=== PATIENT | female | born 1990 | race Caucasian/White ===

== ENCOUNTER → 2017-11-04 15:13 | Outpatient (CLI) | payer MEDICAID, SELFPAY ==
[2017-11-12 09:04] LABS: HPV Reflexed? NOT INDICATED
== END ==
PROVIDERS: Visit Provider Obstetrics & Gynecology
DX: Z12.4 Encounter for screening for malignant neoplasm of cervix (principal)
CPT/HCPCS: 88175; G0145

== ENCOUNTER → 2017-11-09 15:16 | Outpatient (CLI) | payer MEDICAID, SELFPAY ==
[2017-11-09 16:07] LABS: hCG Titer Quant., Serum < 1 mIU/mL (<9 non-preg)
[2017-11-09 16:22] LABS: Progesterone Level 0.62 ng/mL (See Comment)
== END ==
PROVIDERS: Visit Provider Obstetrics & Gynecology
DX: Z30.9 Encounter for contraceptive management, unspecified (principal)
CPT/HCPCS: 36415; 84144; 84702

== ENCOUNTER → 2019-08-29 09:46 | Outpatient (CLI) | payer MEDICAID, SELFPAY ==
[2016-10-22 14:06] VITALS: BMI 34.5
--- NOTE | 2019-08-29 10:00 | RAD_ITS ---
HISTORY: ARCH PAIN S/P STEPPING ON A YOVANI TOY LAST NIGHT ADDITIONAL HISTORY: None provided. TECHNIQUE: Right foot 3 weight bearing views Number of images including paperwork: 3 COMPARISON: None FINDINGS: BONES: No acute fracture. JOINTS: No subluxation. SOFT TISSUES: No distinct foreign body. RAD/Foot min 3 Views IMPRESSION: No acute osseous abnormality. at [id number] Reported and signed by: Leola Casper MD Electronically Signed: Leola Casper MD at 22:48 EST Tel , Service support ,
[2019-08-29 12:45] LABS: Anion Gap 5 (5-15); BUN 16 mg/dL (7-18); BUN/Creat Ratio 24.1 RATIO (10-20); Calcium,Total 8.9 mg/dL (8.5-10.1); Chloride 104 mmol/L (98-107); Cholesterol 182 mg/dL (200); Creatinine, Serum 0.66 mg/dL (0.55-1.02); EST Glomerular Filtration Rate 111 mL/min (>60); Est Glom Filt Rate - Afr Amer 135 mL/min (>60); Glucose 78 mg/dL (74-106); High Density Lipoprotein 64 mg/dL; Sodium Level 140 mmol/L (136-145); Thyroid Stim Hormone (TSH) 1.57 uIU/mL (0.358-3.74); Triglycerides 57 mg/dL; Very Low Density Lipoprotein 11 mg/dL (5-40)
== END ==
PROVIDERS: Family Provider Family Medicine; PCP Family Medicine; Referring Provider Family Medicine; Visit Provider Family Medicine
DX: Z00.00 Encounter for general adult medical examination without abnormal findings (principal); S99.921A Unspecified injury of right foot, initial encounter
CPT/HCPCS: 36415; 73630; 80048; 80061; 84443

== ENCOUNTER 2020-08-18 09:30 | Outpatient (RCR) | payer MEDICAID, SELFPAY ==
--- NOTE | 2020-07-28 10:35 | HP.PTEVAL_ITS ---
Patient's Visit Information ARIELLE HUDDLESTON is a 30 year old F referred to Physical Therapy by RENATA NaranjoM with a diagnosis of L plantarfascitis, post tib tendonitis. Date of Evaluation: 07/28/20 Physical Therapist: Norberto Smith, PT, ATC - Visit Plan Frequency: 2-3x /Week Duration: 4-6 Weeks Plan: L ankle stretching and strengthening, DTR, US, and HEP - Subjective Pt reports pain in her L foot for several years, but notes it has become worse over the past year. Pt reports pain had an insidious onset in nature. Pt reports no Dx tests at this time. Pt reports numbness in L heel that has been there for several years. Pt reports sleep difficulty at this time secondary to pain. Pt reports her pain is the worst when she wakes up and tries to walk. Pt reports she stretches her L foot and soaks in in warm water to aid with the pain. Pt reports prolonged walking and standing increases her pain. 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 3/10 pain at rest, 10/10 at worst. Pt did have a cortisone injection last week which has helped to decrease the pain. - Pain L ankle pain Pain Intensity (Out of 10): 3 Pain Intensity Range: 10 - Objective Neuro: B LE sensation is WNL to light touch. B patellar reflex= 2/3. Palpation: Pt is very sore on plantar aspect of L heel. Minor pain on medial ankle. No obvious swelling or deformity. Ankle ROM: R ankle DF= 9, PF= 65; L ankle DF= 9, PF= 65. MMT: B ankles 5/5 throughout. Gait: Pt displays early pronation with stance phase. - Goals Goal 1:: Decrease L ankle and foot pain x 50% to aid with sleep Goal Time Frame: 4-6 Weeks Goal 2:: Increase L ankle DF ROM x 5-10 degrees to aid with decreasing pain Goal Time Frame: 4-6 Weeks Goal 3:: I with HEP Goal Time Frame: 4-6 Weeks - Rehabilitation Potential Physical Therapy Diagnosis: Pt has L foot and ankle pain, limited DF ROM, and pain with ambulation secondary to L foot plantarfascitis and post tib tendonitis Rehabilitation Potential: Good - Anticipated Interventions Patient/Client Instruction: Educate patient on: Condition, Plan of Care For the Purpose of:: To improve self management Therapeutic Exercise to Include: Strength training, Flexibilty training For the Purpose of:: To decrease pain, To increase ROM Ultrasound (thermal/non thermal): Yes For the Purpose of:: To decrease pain Thank you for the opportunity to evaluate your patient. For Medicare and Medicare HMO plans, please review the plan of care and approve it. It will need to be FAXED BACK to us at [phone] for Medicare purposes. For Medicare only, by signing this I certify the plan of care. Please let me know if there are questions or concerns regarding this plan of care. Physician Signature: Date:
--- NOTE | 2020-08-26 11:01 | HP.PT.NRP ---
ARIELLE HUDDLESTON was seen in my office for initial evaluation on 07/28/20. The following Plan of Care was established for this patient: Initial Frequency: 2-3x /Week Initial Duration: 4-6 Weeks Patient/Client Instruction: Educate patient on: Condition, Plan of Care For the Purpose of:: To improve self management Therapeutic Exercise to Include: Strength training, Flexibilty training For the Purpose of:: To decrease pain, To increase ROM Ultrasound (thermal/non thermal): Yes For the Purpose of:: To decrease pain This patient was last seen in our office . Pertinent comments regarding their Physical therapy will appear below: Pt was treated for one PT visit for L foot pain. Pt phoned the clinic this date to report that she was cancelling all appointments per doctor. At this point I will be discontinuing this patient from physical therapy. I would be happy to see this patient again in the future if found appropriate by the physician. Thank you! Norberto Smith, PT, ATC
== END 2020-08-18 19:00 | disposition home or self-care (01) ==
LOC: PT 09:30
PROVIDERS: PCP Family Medicine; Referring Provider Podiatrist Foot & Ankle Surgery; Visit Provider Podiatrist Foot & Ankle Surgery
DX: M72.2 Plantar fascial fibromatosis (principal); M76.822 Posterior tibial tendinitis, left leg; G57.52 Tarsal tunnel syndrome, left lower limb
CPT/HCPCS: 97110; 97140; 97161

== ENCOUNTER 2020-08-18 18:06 | Emergency (ER) | payer MEDICAID, SELFPAY ==
--- NOTE | 2020-08-18 09:57 | RAD_ITS ---
STUDY: X-RAY - LEFT FOOT CLINICAL: Female, 30 years old. [place] a pop in foot today, pain TECHNIQUE: 3 view(s) of the foot. COMPARISON: None. FINDINGS: Normal talus, calcaneus, and tarsal bones. Normal visualized subtalar, talonavicular, calcaneocuboid, tarsal and tarsometatarsal articulations. Normal metatarsi. Normal metatarsophalangeal joint of the great toe. Normal tibial and fibular sesamoid bones. Normal interphalangeal joint of the great toe. Normal phalanges of the great toe. Normal second through fifth metatarsophalangeal joints. Normal interphalangeal joints and phalanges of the lesser toes. The soft tissue structures are unremarkable. RAD/Foot min 3 Views IMPRESSION: Normal x-ray examination of the foot. Electronically Signed: Sunny Quinones DO at 21:00 EST Tel [phone], Service support ,
[2020-08-18 18:07] VITALS: BP 158/87; PULSE 94; RESP 14; TEMP 36.8; O2SAT 98; BMI 39.4
--- NOTE | 2020-08-18 20:12 | ED.VIS.GEN ---
History of Present Illness Chief Complaint: Lower Extremity Injury Informant: Patient Onset: Today Narrative: Patient states that she was playing kickball with the children when she felt a pop on the underside of her foot. She notes some radiation posterior to the medial malleolus. She has a history of plantar fasciitis and sees Dr. Dukes. Past Medical History - Allergies and Home Meds Allergies/Adverse Reactions: Allergies No Known Allergies Allergy (Verified 08/18/20 18:07) Primary Care Physician: Steph Dukes DPM [STAFF PHYSICIAN] - As soon as possible Past Medical History: - - Planter fasciitis Surgical History: noncontributory Smoking Status: Never smoker Review of Systems General: Denies: Chills, Fever, Sweats Eyes: Denies: Visual changes - bilaterally, Diplopia ENT: Denies: Rhinorrhea, Sore throat Cardiovascular: Denies: Chest pain, Palpitations Respiratory: Denies: Dyspnea, Cough, Dyspnea on exertion Gastrointestinal: Denies: Abdominal pain, Nausea, Vomiting, Diarrhea, Melena, Hematochezia Genitourinary: Denies: Dysuria, Hematuria, Frequency Musculoskeletal: Reports: Extremity Pain. Denies: Back pain Skin: Denies: Rash, Wounds Neurological: Denies: Headache, Weakness, Numbness Physical Exam Vital Signs/Narrative: Vital Signs Temp Pulse Resp BP Pulse Ox 08/18/20 18:07 98.3 F 94 14 158/87 H 98 Inital Vital Signs reviewed: Yes General: Well nourished, Well developed, No Acute Distress Head: Normocephalic, Atraumatic Eyes: Perrl, EOMI ENT: Moist mucous membranes, No rhinorrhea Neck: Supple, Nontender Cardiovascular: Regular rate, Regular rhythm, No murmurs Respiratory: No distress, CTA bilaterally, Chest nontender Abdomen: Soft, Nontender, Nondistended, Normal bowel sounds Back: Nontender, Normal Inspection Extremities: No edema, Tenderness - Tenderness along the arch of the left foot. No significant swelling. No obvious deformities. Neurovascularly intact Skin: Normal color, No rash Neurological: Alert, Oriented x3, Cranial nerves II-XII grossly intact, Normal Strength, Normal Sensation Psychological: Normal affect, Normal Mood Diagnostic/Tx/Re-eval - Medical Decision Making I do not see any fractures or avulsions on the x-ray. It is most likely a plantar strain possibly a small tear in connective tissue. Would recommend rest following up with podiatry. Patient states that she can barely bear weight. We are going to place her in a walking boot. Was discussed with Dr. Dukes. ED Disposition - Plan for ED Patient: Disposition: Home or Assisted Living Diagnosis: Strain of left foot Instructions: ED Strain Muscle Ext Referrals: Steph Dukes DPM [STAFF PHYSICIAN] - As soon as possible
== END 2020-08-18 21:04 | disposition home or self-care (01) ==
PROVIDERS: Emergency Provider Emergency Medicine; PCP Family Medicine
DX: S96.912A Strain of unspecified muscle and tendon at ankle and foot level, left foot, initial encounter (principal); X58.XXXA Exposure to other specified factors, initial encounter; Y93.6A Activity, physical games generally associated with school recess, summer camp and children; Y92.9 Unspecified place or not applicable; Y99.8 Other external cause status; M72.2 Plantar fascial fibromatosis
CPT/HCPCS: 73630; 99284

== ENCOUNTER 2021-05-06 12:49 | Emergency (ER) | payer MEDICAID, SELFPAY ==
[2021-05-06 12:50] VITALS: BP 120/79; PULSE 82; RESP 16; TEMP 36.3; O2SAT 97; BMI 38.3
--- NOTE | 2021-05-06 13:32 | EDS_ITS ---
HPI History of Present Illness Chief Complaint: Ear Problem Detail of Chief Complaint: Neck and upper back pain. Informant: patient Onset/Context/Timing Onset: Yesterday Context: Gradual Onset Timing: Continuous Current Severity: Mild Maximum Severity: Mild Narrative Narrative: 30-year-old female states yesterday she started having left arm pain that moved to her neck and upper back. She denies any falls injury or trauma. No fever or chills. No sore throat. No other complaints.Pain is worse with movement. Prior similar symptoms: Yes Recent Illness/Hospitalization: No PFSH PFSH no medical history Home Medications NK 08/18/20 [History Last Taken Unknown] Allergy/AdvReac Type Severity Reaction Status Date / Time No Known Allergies Allergy Verified 05/06/21 12:49 no surgical history Social History Smoking Status: Never smoker ROS ROS ED ROS Narrative Patient denies any recent illness. Review of Systems ROS Unobtainable: Denies due to encephalopathy Constitutional Constitutional ED: Denies chills or fever(s) Eyes Eyes: Denies change in vision ENT ENT ED: Reports ear pain; Denies sore throat Cardiovascular Cardiovascular: Denies chest pain or palpitations Respiratory/Chest Respiratory/Chest: Denies cough or dyspnea Gastrointestinal Gastrointestinal: Denies abdominal pain, diarrhea, nausea or vomiting Genitourinary Genitourinary ED: Denies dysuria or hematuria Musculoskeletal Musculoskeletal: Reports back pain and neck pain; Denies myalgias Integumentary Denies abscess or rash Neurologic Neurologic: Denies headache(s) Psychiatric Psychiatric: Denies depression Endocrine Endocrinology: Denies polyuria Allergic/Immunologic Allergic/Immunologic ED: Denies urticaria EXAM Physical Exam Narrative Exam Narrative: 3-year-old female no acute distress. Vital signs stable afebrile. Lungs are clear. Heart regular rate and rhythm. TMs are normal bilaterally. As is the posterior pharynx. Patient has reproducible soft tissue pain left lateral neck and trapezius -Consistent with myofascial strain and spasm. Otherwise exam unremarkable. Const Vital Signs: 05/06/21 12:50 Temperature 97.3 F L Temperature Source Temporal Pulse Rate 82 Respiratory Rate 16 Blood Pressure 120/79 Blood Pressure Mean 92 Pulse Ox 97 Oxygen Delivery Method Room Air Positive well nourished and well developed; Negative for unkempt General Appearance ED: well developed and NAD; Negative for unkempt HEENT Reports TM's clear and moist mucous membranes Negative for trauma or tenderness Tympanic Membrane ED: Yes TM's clear Eyes PERRL and EOMs intact bilaterally Neck no lymphadenopathy, supple and no JVD Neck Narrative: Left lateral neck soft tissue tenderness in the distribution of the trapezius. General: tenderness Chest Wall inspection of chest normal and palpation of chest normal Resp normal respiratory effort and clear to auscultation bilaterally Effort and Inspection: Negative for pain with movement Auscultation: Negative for rales, rhonchi or diminished lung sounds Cardio regular rate, regular rhythm, S1 normal heart sound, S2 normal heart sound and no murmurs GI normal to inspection, nondistended, normoactive bowel sounds, non-tender, non- distended and no masses Auscultation: normoactive bowel sounds Palpation: soft; Negative for tender Back/Spine no CVA tenderness Extremity normal to inspection General Extremety ED: Negative for edema or tenderness General Extremity: Negative for edema Neuro oriented x3 and CN's II-XII intact bilaterally Sensorium / Orientation: alert; Negative for lethargic or stuporous Motor Exam: strength 5/5 throughout Psych mental status grossly normal Appearance: Negative for unkempt Skin no rashes or lesions noted and no wounds MDM MDM MDM Narrative Medical decision making narrative: 30-year-old with neck strain and spasm. Patient be treated with Motrin for pain and inflammation. We discussed and are deferring on a muscle relaxant.Hot shower. Warm soaks. Massage. Motrin. Discharge Plan Triage Chief Complaint: Ear Problem ED Provider: Bandar Barajas Dx/Rx/DC Orders Clinical Impression: Muscle spasm Instructions: ED Neck Spasm, No Trauma Prescriptions: No Action NK RF: 0 Primary Care Provider: Edwin Macdonald Referrals: Edwin Macdonald MD [Primary Care Provider] - 1 Week if not improving Activity Restrictions/Additional Instructions: Hot shower. Warm bath. This should help relax the muscles in your neck and upper back. Massage. Motrin, Advil or ibuprofen for pain and inflammation. I did suggest 6 to 800 mg 3 times a day with food on your stomach. No more than 1 week. Follow-up with your doctor if not improving. Disposition Disposition: Home, Self Care
== END 2021-05-06 13:42 | disposition home or self-care (01) ==
PROVIDERS: Emergency Provider Emergency Medicine; PCP Family Medicine
DX: M62.838 Other muscle spasm (principal)
CPT/HCPCS: 99282

== ENCOUNTER 2022-03-03 21:00 | Emergency (ER) | payer MEDICAID, SELFPAY ==
[2022-03-03 21:01] VITALS: BP 145/108; PULSE 92; RESP 18; TEMP 36.1; O2SAT 95; BMI 38.2
--- NOTE | 2022-03-03 21:15 | EKG12_ITS ---
Test Reason : [facility] [place] Blood Pressure : / mmHG Vent. Rate : 067 BPM Atrial Rate : 067 BPM P-R Int : 186 ms QRS Dur : 094 ms QT Int : 396 ms P-R-T Axes : 042 025 013 degrees QTc Int : 418 ms Normal sinus rhythm with sinus arrhythmia Normal ECG Confirmed by CORAL ROB, RAFAELA ([id number]), non linear editor BEN MOJICA ([id number]) on 03/04/2022 11:24:01 AM Referred By: PL Confirmed By:RAFAELA MONCADA MD
--- NOTE | 2022-03-03 21:25 | EX.ED.DYSGE1 ---
HPI <Dr. Josué Vale MD - Last Filed: 03/03/22 22:05> History of Present Illness Chief Complaint: Suicidal Informant: patient Narrative Narrative: Patient presents with depression, anxiety and suicidal thoughts. Patient does have a history of depression about 6 years ago. She was treated with Ativan and Prozac and did pretty well. She has been off meds for a long time. She has been having more more panic attacks and depression recently. In the last 6 weeks is gotten bad. She thinks this is just overall life and stress. 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 She saw her primary physician. They prescribed Prozac which she started two days ago. Since starting the meds, she has had thoughts of hurting herself. She has no specific plan. She just feels as though the only way to feel better would be to not be alive at all. She is crying all the time. She is not sleeping. Her appetite is down. She feels need she needs help. She was also prescribed hydroxyzine and Effexor. However her doctor talked to her about looking at the side effects. Patient did look at these and chose not to start those meds. Patient never has attempted suicide in the past. She denies any physical complaints. PFSH <Dr. Josué Vale MD - Last Filed: 03/03/22 22:05> [facility] Medical History Anxiety Depression depression Home Medications fluoxetine [Prozac] 20 mg PO DAILY 03/03/22 [History Last Taken Unknown] Allergy/AdvReac Type Severity Reaction Status Date / Time No Known Allergies Allergy Verified 03/03/22 21:03 Social History Smoking Status: Never smoker ROS <Dr. Josué Vale MD - Last Filed: 03/03/22 22:05> ROS ED Constitutional Constitutional ED: Denies chills or fever(s) Eyes Eyes: Denies blurry vision ENT ENT ED: Denies rhinorrhea or sore throat Cardiovascular Cardiovascular: Denies chest pain Respiratory/Chest Respiratory/Chest: Denies cough or dyspnea Gastrointestinal Gastrointestinal: Denies abdominal pain, nausea or vomiting Genitourinary Genitourinary ED: Denies dysuria Musculoskeletal Musculoskeletal: Denies myalgias Integumentary Denies rash Neurologic Neurologic: Denies headache(s), paresthesias or weakness Psychiatric Psychiatric: Reports anxiety, depression and suicidal thoughts Endocrine Endocrinology: Denies polydipsia or polyuria Allergic/Immunologic Allergic/Immunologic ED: Denies urticaria EXAM <Dr. Josué Vale MD - Last Filed: 03/03/22 22:05> Physical Exam Const Vital Signs: 03/03/22 21:01 03/04/22 00:10 Temperature 97 F L Temperature Source Temporal Pulse Rate 92 Respiratory Rate 18 16 Blood Pressure 145/108 H Blood Pressure Mean 120 Pulse Ox 95 Oxygen Delivery Method Room Air Patient is actively crying during visit. Positive well nourished and well developed General Appearance ED: well developed and NAD HEENT Reports moist mucous membranes Negative for trauma Eyes General Eye ED: Negative for pale conjunctiva or scleral icterus Neck no JVD Resp normal respiratory effort and clear to auscultation bilaterally Cardio regular rate, regular rhythm and no murmurs GI normal to inspection, nondistended, normoactive bowel sounds and non-tender Palpation: soft Back/Spine no CVA tenderness Extremity normal to inspection Neuro oriented x3 Sensorium / Orientation: alert Psych Psych Narrative: Patient has flat affect. She is tearful. She is cooperative but she makes very poor eye contact. She admits to thoughts of dying and states that she cannot get them out of her head. But she does not have a specific plan. Skin no rashes or lesions noted <Dr. Jocy Reyes DO - Last Filed: 03/04/22 01:04> Physical Exam Const Vital Signs: 03/03/22 21:01 03/04/22 00:10 Temperature 97 F L Temperature Source Temporal Pulse Rate 92 Respiratory Rate 18 16 Blood Pressure 145/108 H Blood Pressure Mean 120 Pulse Ox 95 Oxygen Delivery Method Room Air MDM <Dr. Josué Vale MD - Last Filed: 03/03/22 22:05> MDM MDM Narrative Medical decision making narrative: Patient will have medical work-up here. We will then have crisis team evaluate her for admission versus close intensive outpatient type follow-up. Patient is pending completed work-up and will be turned over the oncoming physician pending final dispo. I was able to get her CBC back that shows minimally elevated hemoglobin but otherwise normal. Electrolytes were normal other than minimally decreased potassium. This will be replaced but I do not think in any way this is contributing to her problems. Lab Data Attestation: I reviewed the patient's lab results. Labs: Laboratory Results - last 24 hr 03/03/22 03/03/22 03/03/22 21:35 21:35 21:35 WBC 8.8 RBC 5.33 Hgb 15.1 H Hct 45.4 MCV 85.2 MCH 28.3 MCHC 33.3 RDW Std Deviation 38.5 RDW Coeff of Conchita 12.5 Plt Count 211 MPV 10.4 Immature Gran % (Auto) 0.300 Neut % (Auto) 65.9 Lymph % (Auto) 26.1 [place] % (Auto) 5.9 Eos % (Auto) 1.3 Baso % (Auto) 0.5 Absolute Neuts (auto) 5.8 Absolute Lymphs (auto) 2.30 Nucleated RBC % 0 Sodium 139 Potassium 3.2 L Chloride 105 Carbon Dioxide 27.0 Anion Gap 7 BUN 12 Creatinine 0.75 Estim Creat Clear Calc 97.80 Est GFR (MDRD) Af Amer 115 Est GFR (MDRD) Non-Af 95 BUN/Creatinine Ratio 16.0 Glucose 90 Calcium 9.2 Serum , Qual Urine Opiates Screen Urine Methadone Screen Ur Barbiturates Screen Ur Phencyclidine Scrn Ur Amphetamines Screen MDMA (Ecstasy) Screen U Benzodiazepines Scrn Urine Cocaine Screen U Cannabinoids Screen Ur Drug Screen Comment Ethyl Alcohol < 3.0 03/03/22 03/03/22 21:35 21:35 WBC RBC Hgb Hct MCV MCH MCHC RDW Std Deviation RDW Coeff of Conchita Plt Count MPV Immature Gran % (Auto) Neut % (Auto) Lymph % (Auto) [place] % (Auto) Eos % (Auto) Baso % (Auto) Absolute Neuts (auto) Absolute Lymphs (auto) Nucleated RBC % Sodium Potassium Chloride Carbon Dioxide Anion Gap BUN Creatinine Estim Creat Clear Calc Est GFR (MDRD) Af Amer Est GFR (MDRD) Non-Af BUN/Creatinine Ratio Glucose Calcium Serum , Qual NEGATIVE Urine Opiates Screen NEGATIVE Urine Methadone Screen NEGATIVE Ur Barbiturates Screen NEGATIVE Ur Phencyclidine Scrn NEGATIVE Ur Amphetamines Screen NEGATIVE MDMA (Ecstasy) Screen NEGATIVE U Benzodiazepines Scrn NEGATIVE Urine Cocaine Screen NEGATIVE U Cannabinoids Screen NEGATIVE Ur Drug Screen Comment Ethyl Alcohol EKG Initial EKG: Comments: EKG done as part of medical clearance read by me showed normal sinus rhythm with slight sinus arrhythmia. No ventricular ectopy. No acute ST elevation or depression. WI interval, QRS duration and QTC is normal <Dr. Jocy Reyes, DO - Last Filed: 03/04/22 01:04> [facility] MDM Narrative Medical decision making narrative: Care of patient turned over to me awaiting evaluation by crisis. Crisis did evaluate the patient and they felt that they could safety plan on the patient as she does not have a plan or intent at this time. Patient will contract for safety. Crisis will have close follow-up with patient. Patient will be discharged to home Lab Data Labs: Laboratory Results - last 24 hr 03/03/22 03/03/22 03/03/22 21:35 21:35 21:35 WBC 8.8 RBC 5.33 Hgb 15.1 H Hct 45.4 MCV 85.2 MCH 28.3 MCHC 33.3 RDW Std Deviation 38.5 RDW Coeff of Conchita 12.5 Plt Count 211 MPV 10.4 Immature Gran % (Auto) 0.300 Neut % (Auto) 65.9 Lymph % (Auto) 26.1 [place] % (Auto) 5.9 Eos % (Auto) 1.3 Baso % (Auto) 0.5 Absolute Neuts (auto) 5.8 Absolute Lymphs (auto) 2.30 Nucleated RBC % 0 Sodium 139 Potassium 3.2 L Chloride 105 Carbon Dioxide 27.0 Anion Gap 7 BUN 12 Creatinine 0.75 Estim Creat Clear Calc 97.80 Est GFR (MDRD) Af Amer 115 Est GFR (MDRD) Non-Af 95 BUN/Creatinine Ratio 16.0 Glucose 90 Calcium 9.2 Serum , Qual Urine Opiates Screen Urine Methadone Screen Ur Barbiturates Screen Ur Phencyclidine Scrn Ur Amphetamines Screen MDMA (Ecstasy) Screen U Benzodiazepines Scrn Urine Cocaine Screen U Cannabinoids Screen Ur Drug Screen Comment Ethyl Alcohol < 3.0 03/03/22 03/03/22 21:35 21:35 WBC RBC Hgb Hct MCV MCH MCHC RDW Std Deviation RDW Coeff of Conchita Plt Count MPV Immature Gran % (Auto) Neut % (Auto) Lymph % (Auto) [place] % (Auto) Eos % (Auto) Baso % (Auto) Absolute Neuts (auto) Absolute Lymphs (auto) Nucleated RBC % Sodium Potassium Chloride Carbon Dioxide Anion Gap BUN Creatinine Estim Creat Clear Calc Est GFR (MDRD) Af Amer Est GFR (MDRD) Non-Af BUN/Creatinine Ratio Glucose Calcium Serum , Qual NEGATIVE Urine Opiates Screen NEGATIVE Urine Methadone Screen NEGATIVE Ur Barbiturates Screen NEGATIVE Ur Phencyclidine Scrn NEGATIVE Ur Amphetamines Screen NEGATIVE MDMA (Ecstasy) Screen NEGATIVE U Benzodiazepines Scrn NEGATIVE Urine Cocaine Screen NEGATIVE U Cannabinoids Screen NEGATIVE Ur Drug Screen Comment Ethyl Alcohol Discharge Plan Triage Chief Complaint: Suicidal ED Provider: Josué Vale Dx/Rx/DC Orders Clinical Impression: Major depression, Suicidal ideation, Anxiety, Hypokalemia Instructions: ED Anxiety Reaction, CONTRACT, No Harm, ED Depression Prescriptions: No Action fluoxetine [Prozac] 10 mg Capsule 20 mg PO DAILY RF: 0 Primary Care Provider: Edwin Macdonald Referrals: Edwin Macdonald MD [Primary Care Provider] - 3-5 Days Activity Restrictions/Additional Instructions: Follow-up with counseling center as instructed Disposition Disposition: Home, Self Care
[2022-03-03 21:46] LABS: Absolute Neutrophil Count 5.8 X10^3/uL (2.0-7.7); Basophil# 0.04 X10^3/uL; Basophil% 0.5 % (0-1); Eosinophil# 0.11 X10^3/uL; Eosinophils% 1.3 % (0-5); Hematocrit 45.4 % (37-47); Hemoglobin 15.1 g/dL (12.0-15.0); Lymphocyte % 26.1 % (19-41); Mean Corp Hgb Conc 33.3 g/dL (32-36); Mean Corpuscular Hgb 28.3 pg (27.0-32.0); Mean Corpuscular Volume 85.2 fL (81-99); Mean Platelet Vol. 10.4 fl (6.2-12.0); Monocyte# 0.52 X10^3/uL; Monocyte% 5.9 % (0-10); NRBC Flagged by Analyzer 0 % (0-5); Neutrophil % 65.9 % (47-70); Platelet Count 211 K/mm3 (150-450); RBC Distribution Width CV 12.5 % (11.6-14.6); RBC Distribution Width SD 38.5 fl (35.1-43.9); Red Blood Count 5.33 M/mm3 (4.2-5.4); White Blood Count 8.8 K/mm3 (4.4-11.0)
[2022-03-03 21:58] LABS: Anion Gap 7 (5-15); BUN 12 mg/dL (7-18); Calcium,Total 9.2 mg/dL (8.5-10.1); Chloride 105 mmol/L (98-107); Creatinine, Serum 0.75 mg/dL (0.55-1.02); EST Glomerular Filtration Rate 95 mL/min (>60); Est Glom Filt Rate - Afr Amer 115 mL/min (>60); Glucose 90 mg/dL (74-106); Potassium 3.2 mmol/L (3.5-5.1); Sodium Level 139 mmol/L (136-145)
[2022-03-03] MEDS: Potassium Chloride Oral Tablet 20 MEQ 40 MEQ PO (22:12)
[2022-03-03 22:24] LABS: Amphetamine Urine VISTA NEGATIVE (<1000 ng/mL); Barbiturate Urine VISTA NEGATIVE (< 200 ng/mL); Benzodiazepine Urine VISTA NEGATIVE (< 200 ng/mL); Cocaine Urine VISTA NEGATIVE (< 300 ng/mL); Ecstacy Urine VISTA NEGATIVE (< 500 ng/mL); Methadone Urine VISTA NEGATIVE (< 300 ng/mL); PCP Urine VISTA NEGATIVE (< 25 ng/mL); THC Urine VISTA NEGATIVE (< 50 ng/mL); Vista UDS pH Range 6
[2022-03-03 22:27] LABS: Internal QC Validated? YES +Cl - CLEAR BKGD; Pregnancy, Serum, hCG Quali. NEGATIVE Negative
[2022-03-03 22:29] LABS: Alcohol, Blood (Medical)-Serum < 3.0 mg/dL
--- NOTE | 2022-03-03 23:11 | NURSING ---
CALLED CRISIS AT [id number]
[2022-03-03] MEDS: Acetaminophen 325 MG Tablet 650 MG PO (23:41)
[2022-03-04 00:10] VITALS: RESP 16
[2022-03-04 01:38] VITALS: PULSE 69; RESP 14; O2SAT 98
== END 2022-03-04 01:38 | disposition home or self-care (01) ==
PROVIDERS: Emergency Provider Emergency Medicine; PCP Family Medicine; Visit Provider Emergency Medicine
DX: F32.9 Major depressive disorder, single episode, unspecified (principal); F41.9 Anxiety disorder, unspecified; R45.851 Suicidal ideations; E87.6 Hypokalemia
CPT/HCPCS: 80048; 80307; 82077; 84703; 85025; 87811; 93005; 99284

== ENCOUNTER 2022-03-15 08:00 | Outpatient (RCR) | payer MEDICAID, SELFPAY ==
--- NOTE | 2022-03-15 10:10 | BH.SGPN.GN ---
Behaviors/Verbalizations/Mental Status: []Eye contact is good. Motor activity is appropriate. Appearance is casual and grooming tended to. Speech is Appropriate. Mood is anxious. Affect is constricted. Thoughts are linear and logical. No evidence of psychosis Client Response/Progress/Benefit: []Pt receptive of session, quiet, but taking notes and nodding at times. Appeared to connect with group topic of cognitive distortions and the impact of thought patterns on mental health, coping behaviors, and relationships. Pt nodded at peer examples of distortions such as catastrophizing and mental filter. Pt?s first day of IOP tx and reports feeling highly anxious, but did well to stay engaged. Pt appeared to benefit from gaining insight on distorted thinking patterns and how this impacts overall mental health. Will continue IOP tx to prevent decompensation, improve daily functioning, and gain health coping skills. Narrative Note: []
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
--- NOTE | 2022-03-17 10:13 | BH.SGPN.GN ---
Behaviors/Verbalizations/Mental Status: []Eye contact is good. Motor activity is appropriate. Appearance is casual. Speech is Appropriate. Mood is depressed and anxious. Affect is congruent. Thoughts are linear and logical. No evidence of psychosis. Client Response/Progress/Benefit: []Pt connected with topic of Anxiety and attentive throughout, though providing limited input. Attentive during psychoeducation on different anxiety disorders and taking notes throughout interactive discussion defining anxiety and identifying cognitive and physiological symptoms of anxiety. Shared that anxiety can lead to isolating and avoidance. Common cognitive symptoms identified by group included: ?what if thoughts?, ?fear of failure?, and predicting the future type thoughts. Pt did not share during discussion on physiological symptoms of anxiety. Benefited from increased awareness and insight on anxiety and its impact. Plan is to continue in IOP to improve mood stability, increase knowledge and use of healthy coping and thought challenge skills, and prevent decompensation. Narrative Note: []
[2022-03-17 11:07] VITALS: BP 128/84; PULSE 67
--- NOTE | 2022-03-17 11:46 | BH.PSY.EVA_ITS ---
Psychiatric Evaluation Initial Evaluation Initial Evaluation: History of Present Illness: [] The patient is a 31-year-old female with a history of depression, anxiety and traits of OCD who was referred by her primary care doctor to the [facility] behavioral health IOP program. The patient currently lives with her boyfriend of 14 years and their 5 biological children from age 6 to age 14 and her boyfriend's niece who is a special needs patient with developmental delays and possible autism. The patient has 3 sons and 2 daughters and the nieces a daughter is a female. The patient was seen in the [place] emergency room on March 03, 2022 for depression, panic attacks and fleeting suicidal ideation. 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 Due to financial stress and the stress of raising 6 children, however the patient's symptoms persisted and worsened. Her boyfriend who is the father of all her 5 children is 37 years old and works full-time at a plant as a maternity floor supervisor. He is supportive. There is no abuse in their relationship. The patient states she has had some anger issues in recent years. She has often intrusive thoughts about medications causing side effects and in fact when she started Prozac several weeks ago she looked up the side effects and began feeling suicidal due to reading about it online. This resolved and the patient had taken Prozac in the past and done well on it. The patient also is afraid to be alone because when she is along she states that her intrusive thoughts increase and are easier to ignore and she gets stuck in my head. Other intrusive thoughts including thoughts that she will possibly hurt others and intrusive images of homicides and other things she has seen in the past on crime TV shows. These thoughts are very unpleasant and ego dystonic for her and she immediately feels bad about herself. She talks to her self and tells her self that these are just thoughts. She does not have any rituals she does to deal with them. She has no history of violence. The thoughts do not regard any specific person or intent. Patient stopped her caffeine use 1 month ago because it was making her anxiety worse. The patient does have some issues with numbers where she has to flip light switches a certain number of times and she has some symmetry issues but it is her intrusive thoughts that last all day long prior to starting the Prozac and have decreased somewhat since starting the Prozac 2 weeks ago. She admits to feeling somewhat sad and edgy at times. She has some crying and low motivation. She admits to hopelessness but denies worthlessness. She does have guilt. She is not enjoying much that she does. Her appetite was decreased and she lost 20 pounds in the past several months but this has improved now and she is not losing weight now. Her sleep is always decreased to about 5 hours a night max and she states I have never slept well. She has low energy during the day and her concentration is better now than it was 2 weeks ago. She ruminates negatively often and this anxiety worsens at night. She has panic attacks daily they were happening twice a day but since the Prozac several weeks ago they have decreased to 1 every 2 days now. She denies any history of self-harm, eating disorder, trauma or PTSD. She denies seizure or head trauma. She admits I am afraid to but at times I do not want to be alive. She had passive thoughts of 2 to 3 weeks ago but has had none in the past week. She had fleeting, passive suicidal ideation 2 to 3 weeks ago but denies any in the past week. She has nonspecific thoughts to harm someone but not out right homicidal ideation and there are no specific intents or people in her intrusive thoughts that are ego dystonic. She denies hallucinations, delusions or symptoms of brook ever. Current Psychiatric Medications: [] Prozac 20 mg p.o. daily (x2 weeks); Vistaril 25 m p.o. nightly; Ativan 0.5 mg once a day last week but the last time she needed any Ativan was 4 days ago. Past Psychiatric History: [] No psychiatric admissions ever. No suicide att empts ever. She first took medication for psychiatric reasons at age 20 and has been mostly off of medication since then. She had counseling once at age 25 for few months and it was mildly helpful. She has been anxious since childhood and had intrusive thoughts but did not know what they were. She was first depressed at age 20 and then after this resolved she had a second episode of depression at age 25. She had 3 pregnancies with no depression or other mood issues. She denies any brook ever . Substance Use History: [] Non-smoker. She used to smoke half a pack per day off-and-on but quit 10 years ago. No vaping. Last used marijuana 6 years ago. No other drugs. No rehab ever. Allergies: [] No known allergies Medications: [] Prozac and Vistaril only. Past Medical History: [] She is overweight and has a history of asthma that was worse in childhood than it is now. She has regular menstrual periods and is not using control but states that her partner is trying not to get her . She is a 5 para 5 AB 0 female who has a history of 5 vaginal deliveries that were uncomplicated. Her only surgeries were a tonsillectomy and a kidney stone removal. Family Psychiatric History: [] Her mother is 63 years old and her father at age 57 of a drug overdose. Her father had a history of depression, anxiety, drug and alcohol abuse. He of a drug overdose at age 57 but this was not known to be suicide. There was a completed suicide by a paternal great grandfather of the patient. Her mother and sister and brother and nephew all have depression and anxiety. Personal/Social History: [] The patient was born and raised in [place] and describes her childhood as there was a lot of [id number] living in a suitcase. The patient's parents were but when the patient was 5 years old and had shared custody. Her father was very loving and spent a lot of time with the children when they were with him and she is much closer to her father. Her mother worked a lot and left the patient and her sister alone and the patient does not get along well with her mother. She has 1 full sister who is 2 years older than her and they are close. She has 2 half-brothers who are 9 years older than her and she is close to one of them. She denies any verbal, physical or sexual abuse ever. School was hard for her but she liked it and her grades were okay but it was not easy for her. She became in 12th grade and and so quit high school. She got her GED at age 19. Her current b oyfriend is her boyfriend of 14 years and he is the father of all her children. No abuse in the relationship. Legal History: [] She was arrested at age 18 for underage alcohol use. 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 No other arrests. Review of Systems: [] Negative except as noted in the present illness. Laboratory was done in the emergency room on March 03 and was normal. Vital Signs: [] Vital signs and exam are reviewed in the records and updated in the nurses notes are reviewed and the patient is deemed able to participate in the IOP program. Mental Status Examination: [] The patient is a 31-year-old female who appears normal for stated age and is overweight. She is not wearing a mask and she is casually dressed and groomed with good hygiene and wearing glasses. She has no psychomotor agitation or retardation. She is cooperative during the interview. Eye contact is good and speech is normal rate and rhythm and fluent with no pressure. Mood is depressed. Affect is constricted and tearful at times. Thought process is goal-directed and organized. Thought content: There is evidence of recent passive thoughts of several weeks ago and passive suicidal ideation several weeks ago but none currently. There is no evidence of homicidal ideation that is specific other than intrusive thoughts that she might harm someone. There is no evidence of hallucinations, delusions or symptoms of brook. Reality testing is intact. Intelligence is average. Judgment is intact. Insight: Some present. Diagnoses: [] 1. Major depressive disorder, recurrent, severe without psychosis 2. Obsessive-compulsive disorder (with obsessions only) 3. Primary support and financial issues Plan: [] The patient will start the IOP program in behavioral health at [facility] as the structure, support, education and group therapy will hopefully prevent worsening of the patient's symptoms which might require hospitalization. She felt safe during the interview and if it anytime she does not feel safe she will let us know or go to the emergency room. The risk, options, possible complications and side effects of the medications were discussed with the patient and she understands and accepts these. She agrees to increase the Prozac to 40 mg p.o. daily and discussion was had that the patient has already responded somewhat to the Prozac and she understands that obsessive-compulsive disorder sometimes takes higher doses of medicines and takes up to 12 weeks to show response. In addition the Vistaril was refilled at 25 mg, 1:59 in the evening as needed for severe anxiety or sleep. I will see the patient in follow-up in 2 weeks and she will continue to follow-up with her outpatient psychiatric and medical providers.
--- NOTE | 2022-03-17 12:01 | BH.DR.ITP ---
Initial Treatment Plan Patient Information Visit Information: ADMISSION DATE: EXPECTED LOS: 4-6 weeks Problems/Symptoms Problem #1:: Depression Symptom:: Hopelessness, guilt, sadness, anger, anhedonia, biological disruption of appetite and weight, low energy, passive thoughts of , passive suicidal ideation Problem #2:: Anxiety Symptom:: Worry, panic attacks, rumination, intrusive thoughts/obsessions
--- NOTE | 2022-03-19 10:15 | BH.SGPN.GN ---
Behaviors/Verbalizations/Mental Status: []Pt alert and oriented, casually dressed and groomed. Eye contact good. Motor activity appropriate. Speech within normal limits. Affect constricted, mood anxious. Thoughts linear, logical, no signs of hallucinations or delusions Client Response/Progress/Benefit: []Pt responded well to session AEB sharing and listening attentively to others. pt was engaged throughout group discussion defining fixed mindset and what it can look like. Group discussed how fixed mindset affects mental health and why we use fixed thoughts. Pt participated in experiential activity encouraging pts to find solutions to a seemingly impossible task. Pt identified personal fixed thoughts in session which included ?I can?t do this, it?s too hard and I?m too old, why try.? Pt gained insight to how these fixed thoughts lead to guilt and unrealistic expectations for herself. Pt appeared to benefit from increased knowledge of fixed mindset and self-awareness of personal fixed thoughts. Will continue IOP tx to prevent decompensation, gain healthy coping skills , and reduce intensity and frequency of intrusive thoughts. Narrative Note: []
--- NOTE | 2022-03-19 14:35 | BH.MDN ---
Multi-Disciplinary Note - Note 30-min Individual Time Started:: 11:30 Date: 03/19/22 Purpose of session/treatment goals addressed:: To gather information on pt's current stressors, symptoms, triggers, and tx goals. Another goal was to build rapport, provide psychoeducation on intrusive thoughts, and provide emotional support. Eye Contact:: Good Motor Activity:: Appropriate Appearance:: Casual Speech:: Appropriate Mood:: Anxious, Irritable, Dysthymic Affect:: Constricted Thoughts:: Racing, No evidence of hallucinations/delusions noted Staff Interventions:: psychoeducation on: - intrusive thoughts, rapport building, strengths perspective, treatment planning, goal setting, other - Discussed exposure therapy and increasing ability to sit with the uncomfortable. Client Response:: Pt responded well to session, open to meeting with therapist. Pt stated her symptoms have been worsening for the past 6 months. Pt shared it got to a point where pt wished she was not alive anymore and this terrified pt. Pt went to the ER in February 2022. Pt reported she was put on Prozac and this helped some, specifically with reducing compulsions. Pt reports her mind never shuts off and that pt is always in my head. Pt describes self as a what if thinker and pt connected to discussion of intrusive thinking. Pt shared she is not ready to read about intrusive thinking yet and reported feeling worried about talking about it. Receptive to emotional support and discussion of the techniques to reduce intrusive thoughts. Pt reported benefitting from this discussion. Pt identified her goals for IOP tx to include learning to be a mom without having guilt, giving more responsibility to her children, loving herself again, finding a job, getting out of her head, and learning how to sit with uncomfortable thoughts and feelings. Pt shared she lacks self-care, especially because she has 6 children. Pt describes her /fiance as helpful and he is taking time off work to watch the children while pt gets help. Risks/Concerns:: Pt denies any active suicidal ideations, plan, or intent as of 03/19/22. Pt denies any HI. Admits to having passive SI several weeks ago due to feeling overwhelmed by life. Progress Toward Goals/Plan:: Pt's first week of IOP tx and pt reports it went better than she thought. Pt's medications were recently increased and pt hopes this helps. Pt currently endorses severe anxiety and intrusive thinking. Pt endorses a depressed mood, lack of energy, panic attacks, racing thoughts, poor sleep, and frequent intrusive thoughts that are highly distressing to pt. Pt also reports rituals and compulsions, but pt reports these have improved since taking Prozac. Pt will continue IOP tx to prevent decompensation, improve overall functioning, and increase ability to manage intrusive thoughts. Time Stopped:: 12:00
--- NOTE | 2022-03-19 14:50 | BH.MTP_ITS ---
[facility] Treatment Plan - Patient Information Program Physician:: Dr. Mack Primary Therapist:: Rama GREEN - Psychiatric Diagnoses Psychiatric Diagnoses:: Major depressive disorder, recurrent, severe without psychosis F 33.2; Obsessive-compulsive disorder Diagnosis Code(s):: F 33.2 - Estimated LOS Estimated LOS (in weeks):: 6 Problem/Goal #1 - Problem/Goal #1 Stated Goal:: Pt will reduce overall frequency, intensity, and duration of anxiety and intrusive thoughts so that daily functioning is not impaired. Description of Barriers: Pt does not have outpatient counseling or psychiatry services. Pt admits to struggling with mom-guilt which leads to lack of self- care and boundaries. Pt reports not knowing who she is outside of being a mother. Functional Impact: Pt is a 31-year-old female with a history of depression, anxiety, and OCD. Pt was referred to IOP tx by her PCP due to worsening depression, fleeting SI, and panic attacks. Pt had an ER visit on 03/03/22 due to mental health concerns and was assessed by crisis. At admission, pt endorsed daily panic attacks, intrusive thoughts, poor sleep, poor appetite, low energy, low motivation, crying spells, anhedonia, and hopelessness. Pt reports intrusive thoughts daily and other OCD tendencies such as touching the door knob until it feels right. Pt has multiple stressors including raising 6 kids and financial stressors. Pt admits to thoughts of not wanting to be alive at times, but denies any active suicidal ideations, plan, or intent. Fear of acting on her intrusive thoughts and being alone. Pt's symptoms are impacting her social, familial, and every day functioning. Goal Relevant Strengths/Supports: Pt's is taking time off work to help with childcare while pt is in [facility]. Pt is motivated and willing to learn. - Objectives Objective #1 Stated Objective: Pt will identify 2-3 anxiety triggers and 2 coping skills to use when feeling anxious to manage anxiety as shown by reducing DSM-5 scores for anxiety. Interventions: Through group and individual sessions, pt will gain awareness of anxiety triggers and learn numerous techniques to manage anxiety symptoms. Therapist will teach mindfulness and other calming techniques to manage symptoms and increase distress tolerance skills. Discharge Criteria: Pt will have met this goal when pt can identify at least 2 triggers and 2 ways to cope with anxiety and show a reduction of DSM-5 scores for anxiety. Target Date: 04/26/22 Review Date: 04/05/22 Status: open Objective #2 Stated Objective: Pt will identify 2-3 intrusive/ruminating thoughts and learn 2-3 strategies to overcome, replace, or reduce the value of those thoughts. Interventions: Therapist will help pt increase awareness of cognitive distortions, false comfort, and myths about intrusive thoughts. Therapist will encourage pt to focus on stressors in her control and teach pt distress tolerance techniques. Therapist will utilize distractions, mindfulness, and CBT- based strategies to help pt learn how to more effectively manage and cope with her intrusive, health-related thoughts. Therapist will use a workbook to give pt homework and exercises to practice. Discharge Criteria: pt will have met this goal when can report least 2 ways to cope with intrusive thoughts that exacerbate anxiety. Target Date: 04/26/22 Review Date: 04/05/22 Status: open Problem/Goal #2 - Problem/Goal #2 Stated Goal:: Pt will reduce depressive symptoms, guilt, low motivation, and negative thinking patterns due to major depressive disorder. Description of Barriers: Pt does not have outpatient counseling or psychiatry services. Pt admits to struggling with mom-guilt which leads to lack of self- care and boundaries. Pt reports not knowing who she is outside of being a mother. Functional Impact: Pt is a 31-year-old female with a history of depression, anxiety, and OCD. Pt was referred to [facility] tx by her PCP due to worsening depression, fleeting SI, and panic attacks. Pt had an ER visit on 03/03/22 due to mental health concerns and was assessed by crisis. At admission, pt endorsed daily panic attacks, intrusive thoughts, poor sleep, poor appetite, low energy, low motivation, crying spells, anhedonia, and hopelessness. Pt reports intrusive thoughts daily and other OCD tendencies such as touching the door knob until it feels right. Pt has multiple stressors including raising 6 kids and financial stressors. Pt admits to thoughts of not wanting to be alive at times, but denies any active suicidal ideations, plan, or intent. Fear of acting on her intrusive thoughts and being alone. Pt's symptoms are impacting her social, familial, and every day functioning. Goal Relevant Strengths/Supports: Pt's is taking time off work to help with childcare while pt is in IOP. Pt is motivated and willing to learn. - Objectives Objective #1 Stated Objective: Pt will learn and utilize 2-3 healthy coping strategies to better manage depressive symptoms as shown by a reduced DSM-5 scores for depression and irritability. Interventions: Through group and individual sessions, therapist will help pt identify triggers and warning signs of depression and emotional dysregulation including emotional, physical, and behavioral changes. Therapist will teach pt various coping skills to manage her symptoms and give pt tangible resources to use to regulate emotions. Therapist will use cognitive restructuring techniques and help pt gain awareness of negative thoughts that reinforce guilt and depression. Therapist will provide psychoeducation on maintenance cycles and help pt learn ways to break unhealthy maintenance cycles. Therapist will help pt incorporate behavioral activation and assist pt in setting SMART goals. Discharge Criteria: Pt will have met this goal when can report learning and using at least 2 coping skills to manage depressive symptoms. Additionally, pt will have met this goal when depressive symptoms and irritability have reduced on the DSM-5 scale. Target Date: 04/26/22 Review Date: 04/05/22 Status: open Objective #2 Stated Objective: Pt will identify at least 2-3 negative self-talk messages used to reinforce depression and guilt and replace thoughts with positive, realistic messages Interventions: therapist will help pt identify distorted, negative beliefs about self and replace with more realistic, affirmative messages. Therapist will use CBT to help pt increase insight to the connection between thoughts, emotions, and behaviors. Therapist will encourage pt to practice thought challenging. Discharge Criteria: Pt will have achieved this goal when can verbalize at least 2 negative self-talk messages and effectively replace those thoughts with affirmative, realistic messages. Target Date: 04/26/22 Review Date: 04/05/22 Status: open
--- NOTE | 2022-03-19 14:51 | BH.PSA_ITS ---
Source of Information - Presenting Problems/Circumstances Problems, Referral Source, Mental Status, Client: Pt is a 31-year-old female with a history of depression, anxiety, and OCD. Pt was referred to [facility] tx by her PCP due to worsening depression, fleeting SI, and panic attacks. Pt had an ER visit on 03/03/22 due to mental health concerns and was assessed by crisis. At admission, pt endorsed daily panic attacks, intrusive thoughts, poor sleep, poor appetite, low energy, low motivation, crying spells, anhedonia, and hopelessness. Pt reports intrusive thoughts daily and other OCD tendencies such as touching the door knob until it feels right. Pt has multiple stressors including raising 6 kids and financial stressors. Pt admits to thoughts of not wanting to be alive at times, but denies any active suicidal ideations, plan, or intent. Fear of acting on her intrusive thoughts and being alone. Pt's symptoms are impacting her social, familial, and every day functioning. Psychiatric Presentation - Psych Issues & Need for Admission Psychiatric Issues:: Major depressive disorder, recurrent, severe without psychosis F 33.2; Obsessive-compulsive disorder Past Psychiatric History - Treatment Hx Treatment History: No psychiatric admissions ever. No suicide attempts ever. She first took medication for psychiatric reasons at age 20 and has been mostly off of medication since then. She had counseling once at age 25 for few months and it was mildly helpful. She has been anxious since childhood and had intrusive thoughts but did not know what they were. She was first depressed at age 20 and then after this resolved she had a second episode of depression at age 25. She had 3 pregnancies with no depression or other mood issues. She denies any brook ever . No current therapist or psychiatrist. First hospitalization:: n/a Most recent hospitalization:: n/a Medication Trials:: No ECT Therapy:: No Age of first mental health symptoms: See treatment history Describe (age, circumstance, etc) any past hospitalizations: pt denies any hospitalizations Current providers for mental health treatment (counselor, psychiatrist, rn field case manager, etc.): No current mental health providers. Pt was put on medication by her PCP. Pt will need outpatient therapy and psychiatry prior to discharging from [facility]. Development & Family of Origin - Childhood Significant Childhood Events: Pt was born and raised in [place] and describes her childhood as there was a lot of [id number] living in a suitcase. The patient's parents were but when the patient was 5 years old and had shared custody. - Family Who currently lives in your home?: Pt and her long-time boyfriend live together with their five children and niece. Describe family composition:: Pt's parents when pt was [age] and they had shared parenting over pt and her sister. Pt described her father as very loving and spent a lot of time with the children when they were with him and she is much closer to her father. Pt's father of a drug overdose when he was 57. Her mother worked a lot and left pt and her sister alone and pt does not get along well with her mother. She has one full sister who is two years older than her and they are close. She has two half-brothers who are 9 years older than her and she is close to one of them. Pt is not , but has been with the same partner for 14 years. Together they have five children and they have guardianship over their niece. Pt reports the relationship is loving and denies any abuse. Pt first became at age 17. - Family History Family Hx of Psychiatric or AOD Problems: pt's at age 57 of a drug overdose. Her father had a history of depression, anxiety, drug and alcohol abuse. He of a drug overdose at age 57 but this was not known to be suicide. There was a completed suicide by a paternal great grandfather of the patient. Her mother and sister and brother and nephew all have depression and anxiety. Ethnicity - Culture Do you identify yourself with any particular cultural, ethnic background, or community?: No - Sexuality Sexual Orientation: Heterosexual Mental Status - Memory Recent Memory: Good Remote Memory: Good - Concentration Concentration: Good - Eye Contact Eye Contact: Good - Speech Speech: Articulate - Thought Process Thought Process: Obsessions Insight: Good Judgment: Good Behavior: Anxious - Orientation Orientation: Time, Person, Place, Situation - Appearance Appearance: Appropriate - Mood Mood: Anxious, Depressed - Affect Affect: Constricted Suicide Assessment - Suicidal Ideation Have you ever felt like hurting yourself?: Yes Were you using ETOH/drugs at the time?: No Suicidal Intentional Rating Scale (SIRS): Suicidal thoughts (past) - admits I am afraid to but at times I do not want to be alive. She had passive thoughts of 2 to 3 weeks ago but has had none in the past week. She had fleeting, passive suicidal ideation 2 to 3 weeks ago but denies any in the past week. She has nonspecific thoughts to harm someone but Physician Notification: If Active suicidal thoughts/Will not contract for safety is checked, contact physician and document in the Physician Notification section below. Violent Behavior/Abuse History - Homicidal Ideation Do you have any homicidal thoughts? If so, explain:: No Is there a known potential victim? If yes, who:: No - Life Events Are there any other significant life events?: Financial loss - pt reports financial stress due to pt not working., - pt's father of an overdose several years ago and pt was very close with him., Hardships - Pt and her partner have guardianship over their niece and pt reports the niece has a lot of mental health and behavioral issues. Pt wants to help her, but pt struggles at times with feeling overwhelmed. - Safety Do you ever feel threatened in your home? If yes, describe:: No Adult Social History - Age 18 to Present Describe your current support system:: Pt has her partner of 14 years, her sister, family, and several friends. Substance Use - Substance Substance Use Type: Alcohol, Marijuana, Tobacco, Caffeine - Specific Drugs What specific drugs have you used?: Non-smoker. She used to smoke half a pack per day off-and-on but quit 10 years ago. No vaping. Last used marijuana 6 years ago. No other drugs. No rehab ever. social drinker. Arrested for underage drinking at age 18. Education & Occupational Histo - Education What is your level of education?: GED - pt got her GED at age 19. Pt dropped out of high school in 12th grade when she became . 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 pt wants to find a part-time job after completing [facility] Service - Service Have you ever been in the ?: No Legal History - Records Have you had any past legal charges?: Yes - underage drinking age 18 Do you have any current legal charges?: No Have you ever been incarcerated? If yes, describe:: No - Court Orders Have you had any past court orders for psychiatric treatment?: No Do you have a present court order for psychiatric treatment?: No Problem Checklist - Current Problem Areas Problem List: Nutritional/Eating pattern changes, Depressed mood/sad, Anxiety, Anger/aggression - irritability, Inattention, Substance use - history of nicotine dependence., Sleep problems, Additional psychosocial stressors - pt is a mother to six children which leaves little time for self-care [employer] Assessment - Client's Needs What are the client's strengths?: Pt's is taking time off work to help with childcare while pt is in [facility]. Pt is motivated and willing to learn. Diagnoses - Diagnoses Diagnosis #1:: OCD Diagnosis #2:: MDD recurrent, severe, without psychosis Interpretive Summary - Interpretive Summary Interpretive Summary: Pt is a 31-year-old female with a history of depression, anxiety, and OCD who was referred by her primary care doctor to the [facility]. Pt currently lives with her boyfriend of 14 years and their 5 biological children from age 6 to age 14 and her boyfriend's niece who is a special needs patient with developmental delays and possible autism. Pt has three sons and two daughters and their niece. Pt was seen at the [facility] ER on March 03, 2022 for depression, panic attacks and fleeting suicidal ideation. Pt states that she has been working as a [id number] mom for about 1 year for the 6 children in the house. 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 Due to financial stress and the stress of raising 6 children, however pt's symptoms persisted and worsened. Her boyfriend who is the father of all her 5 children is 37 years old and works full-time at a plant as a calendering supervisor. He is supportive. There is no abuse in their relationship. pt states she has had some anger issues in recent years and irritability due to her anxiety and OCD. She has often intrusive thoughts about medications causing side effects and when she started Prozac several weeks ago she looked up the side effects and began feeling suicidal due to reading about it online. This resolved and pt had taken Prozac in the past and done well on it. Pt also is afraid to be alone because when she is along she states that her intrusive thoughts increase and are easier to ignore and she gets stuck in my head. Other intrusive thoughts including thoughts that she will possibly hurt others and intrusive images of homicides and other things she has seen in the past on crime TV shows. These thoughts are very unpleasant and ego dystonic for her and she immediately feels bad about herself. She talks to her self and tells her self that these are just thoughts. She has no history of violence. The thoughts do not regard any specific person or intent. Pt reports rituals in which pt will have to touch an object until it feels right and has thoughts that if she does not do this something will happen to my family. Pt stopped her caffeine use one month ago because it was making her anxiety worse. Pt reports depressive symptoms including hopelessness but denies worthlessness. She does have guilt and she is not enjoying much that she does. Her appetite was decreased and she lost 20 pounds in the past several months but this has im proved now and she is not losing weight now. Her sleep is always decreased to about 5 hours a night max and she states I have never slept well. She has low energy during the day and her concentration is better now than it was 2 weeks ago. She ruminates negatively often and this anxiety worsens at night. She has panic attacks daily they were happening twice a day but since the Prozac several weeks ago they have decreased to 1 every 2 days now. She denies any history of self-harm, eating disorder, trauma or PTSD. She denies seizure or head trauma. She admits I am afraid to but at times I do not want to be alive. She had passive thoughts of 2 to 3 weeks ago but has had none in the past week. She had fleeting, passive suicidal ideation 2 to 3 weeks ago but denies any in the past week. She has nonspecific thoughts to harm someone but not out right homicidal ideation and there are no specific intents or people in her intrusive thoughts that are ego dystonic. She denies hallucinations, delusions or symptoms of brook ever. Strong family history of anxiety, depression, and substance use. Pt reports belief her father likely had undiagnosed OCD as well as pt shared he was very much like me. Pt denies any current substance use. Denies history of trauma. Pt reports strong support from her sister and her partner. Treatment Plan Recommendations - Recommendations Guidelines: Special needs identified to be included in the development of an individualized treatment plan regarding past psychiatric history and treatment, developmental events, family relationships/events/culture, past and/or current educational, occupational, social, and residential experience, and legal status. Recommendations:: Pt will start the IOP program in behavioral health at [facility] as the structure, support, education and group therapy will hopefully prevent worsening of the patient's symptoms which might require hospitalization. She felt safe during the interview and if it anytime she does not feel safe she will let us know or go to the emergency room. The risk, options, possible complications and side effects of the medications were discussed between pt and IOP psychiatrist and she understands and accepts these. Pt and therapist discussed using the Overcoming Unwanted Intrusive Thoughts book to help with pt's obsessive thinking and pt is receptive. Pt will need outpatient therapy and psychiatry prior to leaving [facility].
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
--- NOTE | 2022-03-22 09:00 | BH.SGPN.GN ---
Behaviors/Verbalizations/Mental Status: []Pt alert and oriented, neatly dressed and groomed. Eye contact good. Motor activity appropriate. Speech within normal limits. Affect congruent, mood content. Thoughts linear, logical, no signs of hallucinations or delusions. Reviewed pt?s symptom tracker, no risk for suicidal ideation, plan, or intent as of 03/22/22 Client Response/Progress/Benefit: [] Pt responded well to session, attentive and providing supportive statements. Pt reports feeling great this morning. Pt shared she got some adult time this weekend and challenged the guilt she felt for taking time away from her kids. Pt stated this is big progress for her as pt struggles to practice self-care, but pt had a good time. Pt's stressor today is that her is talking about going back to work earlier than expected. Group offered ideas for communicating anxiety with which pt appeared to benefit from. Pt will continue IOP tx to promote mood stability, reduce intrusive thinking, and improve self-confidence. Narrative Note: []
--- NOTE | 2022-03-22 10:00 | BH.SGPN.GN ---
Behaviors/Verbalizations/Mental Status: [] Eye contact is good. Motor activity is appropriate. Appearance is casual. Speech is Appropriate. Mood is anxious. Affect is congruent. Thoughts are linear and logical. No evidence of psychosis. Client Response/Progress/Benefit: [] Pt was an active participant during interactive group discussions. Attentive during psychoeducation on the six types of boundaries (physical, emotional, intellectual, sexual, time, and material) AEB note-taking. Along with peers contributed to interactive discussion on defining what a boundary is in mental health. Pt along with peers identified challenges to setting boundaries which included; fear of other's response, guilt, fear of rejection, fear of disappointing the other person, feeling like one is unworthy to set boundaries, etc. Pt along with peers identified the benefits to setting boundaries such as increased control, decreased stress, increased time for self-care, and increased confidence. Group discussed the mental health benefits to establishing boundaries at work, school, and home. Pt benefited from increased awareness and insight on the importance/benefit to setting health boundaries. Will continue in IOP to prevent decompensation, stabilize anxiety, and improve functioning. Narrative Note: []
--- NOTE | 2022-03-22 11:05 | BH.SGPN.GN ---
Behaviors/Verbalizations/Mental Status: []Client alert and oriented, casually dressed and appropriately groomed. Eye contact good. Motor activity WNL.? Speech within normal limits. Affect congruent, mood anxious and euthymic. Thoughts linear and intact. no signs of delusions or hallucinations. Client Response/Progress/Benefit: []Client responded well to session AEB listening attentively to peers, providing some input, as well as taking notes throughout. Client contributed more throughout psychoeducation on different boundary setting styles which is progress as she has struggled to share in prior groups. Reports connecting most with porous style of boundary setting, identifying difficulties saying ?no? to others or allowing herself to make her own self-care needs a priority. Participated in small group discussion brainstorming various strategies for improving healthy boundary setting. Client reports wanting to begin using skill of practicing saying ?no? to small things and challenging associated guilt in doing so to improve overall ability to establish and maintain healthy boundaries. Seemed to benefit from increased awareness of how different boundary styles can impact mental health. Will continue IOP tx to increase consistent application of skills, increase self-care and anxiety management, and prevent decompensation. Narrative Note: []
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
--- NOTE | 2022-03-24 10:10 | BH.SGPN.GN ---
Behaviors/Verbalizations/Mental Status: []Pt alert and oriented, neatly dressed and groomed. Eye contact good. Motor activity appropriate. Speech within normal limits. Affect constricted, mood euthymic and anxious. Thoughts linear, logical, no signs of hallucinations or delusions. Client Response/Progress/Benefit: []Pt engaged during session AEB Pt contributing thoughts throughout discussion and completing worksheet. Connected with discussion on crisis and how coping with external crises by using unhealthy coping skills could result in a personal crisis. Group reflected on the importance of having awareness of personal warning signs to prevent reaching crisis point. Group identified potential warning signs for crisis and Pt completed the personal warning signs worksheet. Pt identified personal crisis warning signs to include: over-thinking, uncontrollable crying, and increased irritability. Pt benefited by increasing awareness of what leads to crisis and personal warning signs. Pt will continue IOP tx to improve distress tolerance skills, improve daily functioning, and reduce intensity of intrusive thinking. Narrative Note: []
--- NOTE | 2022-03-24 15:11 | BH.MDN ---
Multi-Disciplinary Note - Note 45-min Individual Time Started:: 11:30 Date: 03/24/22 Purpose of session/treatment goals addressed:: To work on goal #1 of pt's tx plan by learning about intrusive thinking and practicing calming skills. Eye Contact:: Good Motor Activity:: Appropriate Appearance:: Casual Speech:: Soft Mood:: Anxious, Dysthymic Thoughts:: Linear, Logical, No evidence of hallucinations/delusions noted Staff Interventions:: psychoeducation on: - intrusive thoughts and how these thoughts are created, CBT techniques, mindfulness skills - practiced PMR, strengths perspective, other - gave pt homework to read a chapter on the myths about thoughts Client Response:: Pt responded well to session, open to meeting with therapist. Pt reports she had a good weekend and got to spend time with her friends without children. This is significant for pt as pt struggles with guilt and lack of self-care. Pt also reflected on her goals from last session which was to identify what pt's children can take more responsibility for at home. This will reduce pt's stress and help pt's children be more independent per pt's report. Pt's goal this week is to create a family chart that has chores, bedtime, and shower schedule to help everyone get organized. Pt receptive to learning more about intrusive thinking and pt read part of a chapter in the Overcoming Unwanted Intrusive Thoughts book. Pt shared this sums up everything I'm going through. Pt was very anxious to read this, but pt shared it was easier than she expected. Pt receptive to reading a chapter at home which is progress from last week. Pt practiced progressive muscle relaxation in session and was encouraged to use this when pt's anxiety increases. Pt reports also using the 5-senses and going out in nature. Risks/Concerns:: Pt denies any suicidal ideations, plan, or intent as of 03/24/22. Pt denies any thoughts of . Progress Toward Goals/Plan:: Pt is progressing well in IOP tx AEB her consistent attendance and self-report of practicing coping skills outside of IOP. Pt stated she made progress with having a kid-free event this weekend with less guilt. Pt continues to struggle with severe anxiety, intrusive thoughts that cause distress, avoidance, and racing thoughts. Pt will continue IOP tx to reduce intensity of intrusive thinking, gain healthy coping skills, and improve daily functioning. Time Stopped:: 12:15
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
--- NOTE | 2022-03-26 10:10 | BH.SGPN.GN ---
Behaviors/Verbalizations/Mental Status: [] Eye contact is good. Motor activity is appropriate. Appearance is casual. Speech is Appropriate. Mood is depressed. Affect is flat. Thoughts are linear and logical. No evidence of psychosis Client Response/Progress/Benefit: [] Pt participated at times during the group discussions and experiential activity. Attentive during psychoeducation. Group had an interactive discussion in which they provided insight on the definition of a pitfall which was things that we engage in that keep us stuck and away from a healthier path. Group identified types of pitfalls in mental health such as isolation, not asking for help, avoiding, not taking medications, avoiding responsibilities, not setting boundaries, and self-sabotage. Pt played an active role in the experiential activity and was able to make connections between the activity and today's topic. Benefited from increased insight on pitfalls and how they can impact mental health. Will continue in IOP to prevent decompensation, increase health coping, and improve daily functioning. Narrative Note: []
--- NOTE | 2022-03-26 11:10 | BH.SGPN.GN ---
Behaviors/Verbalizations/Mental Status: []Pt alert and oriented, casually dressed and groomed. Eye contact good. Motor activity appropriate. Speech within normal limits. Affect congruent, mood anxious. Thoughts linear, logical, no signs of hallucinations or delusions. Client Response/Progress/Benefit: []Pt receptive of session, engaged throughout AEB pt actively listening and contributing to discussion, as well as taking notes.? Pt completed worksheet identifying personal pitfalls impacting mental health progress. Pt identified the following pitfalls: negative thoughts, anxiety, frustration, fear of failure, and giving up easily. Group worked together to identify different coping skills to help manage pitfalls. Pt selected the following coping skills to help with pitfalls: opposite action, thought challenging, limiting her to-do list to two manageable tasks per day, and meditation. Pt wants to work on managing pitfalls by setting small grounding and meditation goals focused on managing anxiety. Benefited from identifying personal pitfalls and strategies to overcome these pitfalls. Will continue IOP tx to reduce anxiety, reduce avoidance, and increase ability to manage OCD symptoms. Narrative Note: []
--- NOTE | 2022-03-29 09:03 | BH.SGPN.GN ---
Behaviors/Verbalizations/Mental Status: []Pt alert and oriented, casually dressed and groomed. Eye contact poor. Tearful throughout. Motor activity appropriate. Speech within normal limits. Affect flat, mood depressed. Thoughts linear, logical, no signs of hallucinations or delusions. Reviewed pt?s symptom tracker, no risk for suicidal ideation, plan, or intent as of 03/25/22 Client Response/Progress/Benefit: []Pt appeared to be distracted and stuck in her own thoughts AEB pt crying off and on throughout first group. Pt chose to not share her thoughts or feelings during group session. Pt's individual therapist notified after group about pt struggling throughout first session. Pt seemed to benefit from getting out of house today and being surrounded by support people. Pt to continue IOP to increase healthy coping skills, challenge negative thought patterns and prevent decompensation.
--- NOTE | 2022-03-29 11:05 | BH.SGPN.GN ---
Behaviors/Verbalizations/Mental Status: []Pt alert and oriented, casually dressed and groomed. Eye contact good. Motor activity appropriate. Speech within normal limits. Affect constricted, mood dysthymic. Thoughts linear, logical, no signs of hallucinations or delusions. Client Response/Progress/Benefit: []Pt responded well to session AEB listening to group discussion and completing the resilience worksheet provided. Pt participated in the discussion of how each resiliency component can help increase personal resiliency. Pt identifying doing well with the resilience components of making connections, self-care, self-awareness, and moving toward her goals. Reflected on wanting to improve in the personal resilience component of accepting that change is a part of living. Pt stated she wants to work on this by practicing mindfulness and living in the moment. Pt seemed to benefit from discussing strategies for improving personal resilience. Will continue IOP tx to improve sleep, reduce intensity of intrusive thinking, and improve overall functioning. Narrative Note: []
--- NOTE | 2022-03-29 13:39 | BH.MDN_ITS ---
Multi-Disciplinary Note - Note 30-min Individual Time Started:: 12:00 Date: 03/29/22 Purpose of session/treatment goals addressed:: Pt was tearful throughout group sessions today. Goal was to process pt's emotions and provide emotional support. Eye Contact:: Good Motor Activity:: Appropriate Appearance:: Casual Speech:: Soft Mood:: Depressed Affect:: Congruent - tearful Thoughts:: Linear, Logical, No evidence of hallucinations/delusions noted Staff Interventions:: mindfulness skills, strengths perspective, other - provided emotional support and validation Client Response:: Pt responded well to session, open to meeting with therapist. Pt was tearful throughout session and shared that she did not get much sleep last night. Pt went to see her father's grave yesterday for Father's Day and it triggered a lot of grief. Pt stated she is sad and angry because he made a mistake and should still be here. Pt reports her father accidentally overdosed on her sister's birthday several years ago. Pt was very close with her father and identified him as her best friend. Pt receptive to processing emotions, grief, and emotional support. Pt identified taking a nap, talking to her sister, and enjoying her daughter's softball game tonight as healthy coping skills she can use. Pt reported she is afraid to take her new sleep medication due to fear of side effects. Processed this and pt weighed the pros and cons. Pt agreeable t o take the medication tonight. Risks/Concerns:: Pt denies any suicidal ideations, plan, or intent as of 03/29/22. Progress Toward Goals/Plan:: Pt continues to make progress towards tx goals AEB pt's consistent attendance and application of coping skills. Pt reports increased self-care and adult time. Pt's depressed mood and tearfulness is due to pt missing her father who several years ago. Father's Day was a trigger for pt. Pt continues to struggle with poor sleep and has been too anxious to start her new sleep medication. Pt also endorses intrusive thinking, avoidance behaviors, and anxiety. Pt will continue IOP tx to promote the use of healthy coping skills, reduce intensity of intrusive thinking, and improve daily functioning. Time Stopped:: 12:25
--- NOTE | 2022-03-31 09:10 | BH.SGPN.GN ---
Behaviors/Verbalizations/Mental Status: []Pt alert and oriented, casually dressed and groomed. Eye contact fair to good. Motor activity appropriate. Speech within normal limits. Affect congruent, mood euthymic and anxious. Thoughts linear, logical, no signs of hallucinations or delusions. Reviewed pt?s symptom tracker, no risk for suicidal ideation, plan, or intent as of 03/31/22 Client Response/Progress/Benefit: []Pt responded well to session, attentive and willing to provide some input to peers which is progress for pt. Pt reports feeling hopeful this morning as she is seeing progress in treatment and her ability to better manage anxiety sx. Discussed challenging herself to ?do the anxious thing? when feeling increased anxiety about reviewing the homework from her individual session. Expressed feeling proud of herself for doing so as able to connect with the materials she was given to review. Pt went on to note spending time outside of the house with her children and which was also a positive as she often struggles with isolation. Reports continuing to struggle with anxious and intrusive thoughts regarding beginning a new sleep medication; however was receptive of and appeared to benefit from supportive feedback and suggestions provided by the group. Pt will continue IOP tx to promote mood stability, further reduce anxious thinking patterns and use of safety behaviors, as well as improve daily functioning. Narrative Note: []
--- NOTE | 2022-03-31 10:10 | BH.SGPN.GN ---
Behaviors/Verbalizations/Mental Status: [] Eye contact is good. Motor activity is appropriate. Appearance is casual. Speech is Appropriate. Mood is anxious. Affect is congruent. Thoughts are linear and logical. No evidence of psychosis. Client Response/Progress/Benefit: [] Attentive during psychoeducation on SMART (Specific, Measurable, Achievable, Realistic, Timely)goals AEB by note-taking. Attentive during group discussion on benefits to setting goals which group identified as; give direction, provide purpose, give one sense of accomplishment, motivate, and can lead to personal growth. Attentive while peers identified obstacles to setting/completing goals which included; procrastination, mental health, believing they are too difficult, urge to avoid, get distracted, other people get in the way, low motivation, negative self-talk, unrealistic expectations, and procrastination. Engaged during activity and was able to relate the activity to goal-setting topic. Benefited from increased awareness on benefits to goal-setting, obstacles to developing and following through with a goal, and strategies for setting goals. Will continue in IOP to increase health coping skills, decrease anxiety, and improve daily functioniong. Narrative Note: []
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
--- NOTE | 2022-03-31 14:33 | BH.MDN ---
Multi-Disciplinary Note - Note 45-min Individual Time Started:: 11:45 Date: 03/31/22 Purpose of session/treatment goals addressed:: To work on goal #1 of pt's tx plan. Another goal was to review homework from last week's session. Eye Contact:: Good Motor Activity:: Appropriate Appearance:: Casual Speech:: Appropriate Mood:: Euthymic Affect:: Congruent Thoughts:: Linear, Logical, No evidence of hallucinations/delusions noted Staff Interventions:: CBT techniques, strengths perspective, goal setting, taught coping skills - reviewed the myths about thoughts in the Overcoming Unwanted Intrusive Thoughts book Client Response:: Pt responded well to session, open to meeting with therapist. Pt reports she had a good and tough night last night. Pt shared her anxiety was high, but instead of pt getting stuck in her head, pt used skills. Pt also read through the chapter on myths about thoughts and pt reported this was helpful. Pt stated it helped pt gain awareness that having disturbing thoughts does not make pt a crazy or violent person. Pt also shared it was helpful to think of her thoughts as static on the radio. Pt receptive to reading another chapter for homework. Also discussed sitting with the uncomfortable and not giving into impulses or safety behaviors. Pt completed her homework from last session which was to identify the chores pt wants to have her children do at home. Pt now needs to hang up the chart at home and enforce this with her children. Pt asked how to provide support to her niece who is living with pt and has a history of trauma and neglect. Pt was provided with information on outpatient counseling in [place] for youth. Risks/Concerns:: Pt denies any suicidal ideations, plan, or intent. Pt denies any thoughts of . Progress Toward Goals/Plan:: Pt's mood has improved from Tuesday and pt reports I think I just needed to cry. Pt continues to work toward her treatment goals and reports overall her intrusive thinking is becoming less obsessive. Pt continues to struggle with sleep issues, anxiety, intrusive thinking, and low energy. Pt has been anxious to start Trazodone, but pt talked with [facility] psychiatrist today and pt reports she is more likely to do it tonight. Pt will continue IOP tx to promote mood stability, reduce intensity and frequency of intrusive thoughts, and improve distress tolerance. Time Stopped:: 12:30
--- NOTE | 2022-04-02 09:05 | BH.SGPN.GN ---
Behaviors/Verbalizations/Mental Status: [] Eye contact is good. Motor activity is appropriate. Appearance is casual. Speech is Appropriate. Mood is anxious. Affect is full. Thoughts are linear and logical. No evidence of psychosis. Reviewed daily check in sheet and no reports of suicidal ideations or intent. Client Response/Progress/Benefit: [] Pt participated when prompted. Attentive. Emotion for today is hopeful. Daily symptom notes 10/14 for anxiety. Mental health win was I had the courage to take my sleep medication yesterday. She was anxious about starting a new medication fearing that it would causes suicidal thoughts or that she would fall asleep and never wake up from the medication. She understands that these are irrational thoughts however they were causing her significant distress. After meeting with program psychiatrist and therapist she felt more comfortable and decided to take the medication. The medication was very helpful and she reports that she received a good night's sleep. She describes that her anxiety was very high right after I took it however she utilized skills, relied on support, and was able to work through it. Stressors is that her plans to return to work next week. had taken FMLA to help pt care for kids while she was experiencing significant anxiety and distress. Progress noted. Benefited from group support, encouragement, and feedback. Will continue in IOP to maintain safety, stabilize mood, increase healthy coping, and improve functioning. Narrative Note: []
--- NOTE | 2022-04-02 10:10 | BH.SGPN.GN ---
Behaviors/Verbalizations/Mental Status: []Pt alert and oriented, casually dressed and groomed. Eye contact good. Motor activity appropriate. Speech within normal limits. Affect congruent, mood euthymic. Thoughts linear, logical, no signs of hallucinations or delusions. Client Response/Progress/Benefit: []Pt responded well to session AEB pt listening attentively to others and taking notes. Pt was engaged throughout discussion introducing the topic of self-care and its importance. Group identified myths about self-care, such as self-care is selfish, takes too much money, takes too much time, has to be fun, and means one thinks they are more important than others. Pt shared she struggles a lot with feeling guilty for taking time for self-care. Contributed ideas as group identified self-care benefits to include: improved mood, reduced avoidance, better relationships, and more productivity. Pt appeared to benefit from increased knowledge of the importance and benefits of self-care. Will continue IOP tx to further reduce anxiety and intrusive thoughts and improve daily functioning. Narrative Note: []
--- NOTE | 2022-04-02 11:15 | BH.SGPN.GN ---
Behaviors/Verbalizations/Mental Status: []Pt alert and oriented, casually dressed and groomed. Eye contact good. Motor activity appropriate. Speech within normal limits. Affect congruent, mood euthymic. Thoughts linear, logical, no signs of hallucinations or delusions. Client Response/Progress/Benefit: []Pt engaged participant AEB completing self-assessment worksheet and contributing input during discussion. Participated throughout group discussion on the various areas of self-care. Pt completed worksheet which identified current self-care practices and what self-care activities pt wants to start using. Pt selected social self-care to begin practicing more consistently. Pt plans to do this by scheduling more adult time and dates with her . Appeared to benefit from completing the self-care evaluation and gaining insights into current self-care practices, as well as identifying areas in which she would like to improve upon. Will continue IOP tx to further decrease anxiety and intrusive thinking, improve self-care, and reduce guilt. Narrative Note: []
--- NOTE | 2022-04-05 09:05 | BH.SGPN.GN ---
Behaviors/Verbalizations/Mental Status: [] Eye contact is good. Motor activity is appropriate. Appearance is casual. Speech is Appropriate. Mood is anxious. Affect is full. Thoughts are linear and logical. No evidence of psychosis. Reviewed daily check in sheet and no reports of suicidal ideations or intent. Client Response/Progress/Benefit: [] Pt participated when prompted. Attentive. Emotion for today is hopeful. Mental health wins included helping out sister in need She shared a series of events this weekend in which she was able to help out those who have helped me and how this was beneficial to her mental health. I was able to give back. She is utilizing self-care on a more consistent basis as well. Taking a showed was always an anxiety inducing time for her as she was alone with my ruminating thoughts. Yestrerday she turned on the music while showering and actually started singing. Feels that she is moving forward and her overall anxiety is reducing. Stressor is that her who had taken FMLA to help care for pt and kids while she wasn't functioning due to anxiety is returned to work today. She is concerned that caring gor all the kids will increase her anxiety and stress and lead to regression. Progress noted per pt report. Benefited from group support and encouragement. Will continue in IOP to maintain safety, prevent decompensation, and improve functioning. Narrative Note: []
--- NOTE | 2022-04-05 10:10 | BH.SGPN.GN ---
Behaviors/Verbalizations/Mental Status: []Client alert and oriented, casually dressed and groomed. Eye contact good. Motor activity appropriate. Speech within normal limits. Affect congruent, mood anxious, euthymic. Thoughts linear, logical, no signs of hallucinations or delusions. Client Response/Progress/Benefit: [] Client responded well to session, attentive and providing input throughout. Participated in discussion of things that can keep people feeling trapped or stuck in life including; avoidance, unhealthy coping, and isolation. Shared connecting with social anxiety and OCD. Group discussed the connection between thoughts, emotions, and behaviors as well as how negative thinking can keep a person stuck. Client attentive during psychoeducation on maintenance cycles with taking notes and providing input. Client able to identify negative thoughts that have kept client stuck which included ? Something bad with happen. Appeared to benefit from gaining awareness of how negative thoughts reinforce mental health symptoms and keep people stuck. Will continue IOP tx to prevent decompensation, increase anxiety management skills, and continue to combat distortions to improve overall functioning. Narrative Note: []
--- NOTE | 2022-04-05 11:15 | BH.SGPN.GN ---
Behaviors/Verbalizations/Mental Status: []Client alert and oriented, casually dressed and groomed. Eye contact good. Motor activity appropriate. Speech within normal limits. Affect congruent, mood euthymic and anxious. Thoughts linear, logical, no signs of hallucinations or delusions. Client Response/Progress/Benefit: [] Client responded well to session, contributing to discussion and providing supportive feedback. Client identified a negative thought that has kept her stuck. Client's thought was Im not a good mother. Client reported when she thinks this way, she gets sad and experiences panic attacks. Client worked to reframe the thought by finding more rational, realistic ways to look at the thoughts and then processed within group setting. Client reframed the thought to ?I do positive action for my children, I teach them life lessons? Client stated she will use positive self-talk to continue challenging negative self-talk. Client appeared to benefit from practicing challenging negative thinking. Client will continue IOP tx to promote use of healthy coping skills that will improve overal functioning. Narrative Note: []
--- NOTE | 2022-04-05 15:01 | BH.MTP_ITS ---
Treatment Plan Review Date of Admission:: 03/15/22 Date of Treatment Plan Review:: 04/05/22 Admitting Diagnoses:: Major depressive disorder, recurrent, severe without psychosis F 33.2; Obsessive-compulsive disorder Current Diagnoses:: Major depressive disorder, recurrent, severe without psychosis F 33.2; Obsessive-compulsive disorder Patient's Response to Treatment:: Pt has responded well to treatment AEB pt consistently attending IOP sessions and her reduction of DSM-5 scores since admission. Pt contributes well during individual sessions and actively contributes during group sessions. Pt applies coping skills outside of IOP and reports overall her mood is improved and she is having less intrusive thinking. Pt has also been able to utilize self-care more and her sleep has improved. Status of Current Problems and Symptoms: Pt's symptoms of depression, anxiety, and OCD are resolving, but still ongoing. Pt reports improvement with managing intrusive thinking, but pt still struggles with sitting with her anxiety and reducing the value of her intrusive thoughts. Pt is working on using opposite action when she wants to avoid or not try something new. Pt is also working on reducing mom guilt and increasing self-care. Problem #1 Problem Name:: anxiety, intrusive thoughts, and compulsions/safety behaviors Status of Goals:: Objective 1-complete with ongoing work encouraged. Pt?s DSM-5 scores for anxiety have decreased by 83% since admission and pt?s DSM-5 scores for OCD have decreased by 50% since admission. Pt can identify triggers to her anxiety and intrusive thoughts and increased awareness of how to manage her intrusive thoughts. Objective 2- in progress. Pt has been responding well to the Overcoming Unwanted Intrusive Thoughts book. Pt is working on reducing the value of her intrusive thoughts and not judging herself for intrusive thinking. Team Recommendations:: Treatment tx recommends pt continuing working on these goals to further reduce the value of her intrusive thoughts and improve functioning. Pt also encouraged to continue working on setting boundaries and using self-care. Pt will need outpatient counseling and psychiatry prior to discharge. Pt given information for [id number]. Problem #2 Problem Name:: depressive symptoms, guilt, low motivation, and negative thinking Status of Goals:: Objective 1- complete with ongoing work encouraged to maintain mood. Pt?s DSM-5 scores for depression and irritability have both decreased by 100% since admission. Pt reports using opposite action, goal setting, and increased self-care. Objective 2- in progress. Pt has gained awareness of the different distortions and how these reinforce guilt. Pt is working on combating negative thoughts about being a bad mother and taking time for self-care. Team Recommendations:: Treatment tx recommends pt continue working on combating guilt, especially in regard to practicing self-care and having time away from her children. Pt is working on challenging distortions and increasing self- confidence.
--- NOTE | 2022-04-08 09:05 | BH.SGPN.GN ---
Behaviors/Verbalizations/Mental Status: [] Eye contact is good. Motor activity is appropriate. Appearance is casual. Speech is Appropriate. Mood is euthymic. Affect is full. Thoughts are linear and logical. No evidence of psychosis. Reviewed daily check in sheet and no reports of suicidal ideations or intent. Client Response/Progress/Benefit: [] Pt was an active participant in group discussion. Attentive. Provided appropriate feedback. Emotion for today is grateful. Mental health wins include completing chore chart for my kids and going to local [employer]. 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 Utilized skills such as distraction, mindfulness, and thought reframing. Despite some frustrations she was able to stay in the moment which was beneficial to her and her family. Her returned to work this week which she has been very anxious and stressed about. 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 Developed a routine and is following through with it. She also reached out to her previous employer to inquire about a part-time job. Per report she is sleeping better, utilizing skills, and managing anxiety/stress in the moment. Progress noted per pt report. Will continue in IOP to maintain gains and prevent decompensations. Narrative Note: []
--- NOTE | 2022-04-08 10:20 | BH.SGPN.GN ---
Behaviors/Verbalizations/Mental Status: []Pt alert and oriented, casually dressed and groomed. Eye contact good. Motor activity appropriate. Speech within normal limits. Affect constricted, mood euthymic. Thoughts linear, logical, no signs of hallucinations or delusions. Client Response/Progress/Benefit: []Pt was an active participant in group discussion. Group worked together to identify benefits of healthy relationships which include; improves mental health, encouragement, motivation, accountability, validation, connection, someone to share experiences with, and personal growth. Group identified factors that lead to unhealthy relationships which included; co-dependence, lack of personal exploration, gaslighting, and blaming. Pt stated holding grudges can make a relationship unhealthy. Actively participated in group experiential activity and expressed ideas to group. Benefited from increased insight and awareness of benefits of healthy relationships and factors that contribute to unhealthy relationships. Will continue in IOP to promote gains, further decrease intrusive thinking, and reduce use of safety behaviors. Narrative Note: []
--- NOTE | 2022-04-08 14:32 | BH.MDN ---
Multi-Disciplinary Note - Note 60-min Individual Time Started:: 12:15 Date: 04/08/22 Purpose of session/treatment goals addressed:: To review pt progress and identify further goals. To practice in the moment coping skills to increase distress tolerance to manage anxiety and reduce compulsions. Eye Contact:: Good Motor Activity:: Appropriate Appearance:: Casual Speech:: Appropriate Mood:: Euthymic, Anxious Affect:: Congruent Thoughts:: Linear, Logical, No evidence of hallucinations/delusions noted Staff Interventions:: CBT techniques, mindfulness skills, strengths perspective, reviewed DSM-5, taught coping skills - reviewed homework from last session and practiced building distress tolerance skills in session. Client Response:: Pt responded well to session, open to meeting with therapist. Pt reports she has been feeling good and doing good. Pt reports she is actively using healthy coping skills to manage her anxiety and intrusive thoughts. Pt completed a chores list for her children which will reduce pt's stress by allowing self-care and promote independence for her children. Pt shared she is feeling better about delegating and having less guilt when she takes time for self-care. Pt acknowledges that she can continue to improve with reducing certain safety behaviors/compulsions. Pt stated she still cannot look at a knife or anything sharp due to previous intrusive thoughts about violence. Discussed how exposure therapy works and increasing her ability to sit with the uncomfortable. Practiced stilling with the uncomfortable in session as pt breathed and used self-talk to not fix something in the office. Pt willing to practice prolonging her response by giving herself a minute before engaging in safety behaviors. Pt will practice this for homework. Pt also completed new pt paperwork for [id number]. Risks/Concerns:: Pt denies any suicidal ideations, plan, or intent as of 04/08/22. Denies any thoughts of . Progress Toward Goals/Plan:: Pt is showing significant progress towards tx goals AEB a 86% reduction in overall DSM-5 scores since admission. Pt reports increased self-care, reduced intensity of intrusive thoughts with more ability to manage them, and less irritability. Pt's returned to work this week and pt has been feeling confident with the children. Pt continues to struggle with her OCD and wants to work on reducing safety behaviors. Pt also wants to work on continuing to improve her emotional regulation skills to manage stressors at home. Pt will continue IOP tx to promote gains, further decrease OCD symptoms, increase self-compassion, and further improve functioning. Time Stopped:: 13:15
== END 2022-04-08 23:59 ==
LOC: BHIOP 08:00
PROVIDERS: PCP Family Medicine; Referring Provider Psychiatry & Neurology Psychiatry; Visit Provider Psychiatry & Neurology Psychiatry
DX: F33.2 Major depressive disorder, recurrent severe without psychotic features (principal); F42.9 Obsessive-compulsive disorder, unspecified; Z79.899 Other long term (current) drug therapy; F17.210 Nicotine dependence, cigarettes, uncomplicated
CPT/HCPCS: 90792; 99214; H2012; H2020; S9480; T1002; 90832; 90834; 90837

== ENCOUNTER 2022-04-09 07:25 | Outpatient (RCR) | payer MEDICAID, SELFPAY ==
[2022-04-09 00:46] VITALS: BP 128/84; PULSE 67
--- NOTE | 2022-04-09 09:00 | BH.SGPN.GN ---
Behaviors/Verbalizations/Mental Status: [] Eye contact is good. Motor activity is appropriate. Appearance is casual. Speech is Appropriate. Mood is euthymic. Affect is full. Thoughts are linear and logical. No evidence of psychosis. Reviewed daily check in sheet and no reports of suicidal ideations or intent. Client Response/Progress/Benefit: [] Pt was an active participant in group discussion. Attentive. Provided appropriate feedback. Emotion for today is peaceful. Mental health win was visiting my mother. She shared why she considered this beneficial to her mental health. Pt provided support to her mother who is struggling physically and emotionally and started to rebuild their relationship. She was able to provide some advice and suggestions to help with mental health and overall felt that being vulnerable and supportive may help her mother. Overall her anxiety and depression have decreased significantly in the past week and she notes increased confidence in her ability to manage her emotions. Progress noted per pt report. Benefited from group support, encouragement, and feedback. Will continue in IOP to maintain gains and increase healthy coping skills. Narrative Note: []
--- NOTE | 2022-04-09 10:15 | BH.SGPN.GN ---
Behaviors/Verbalizations/Mental Status: []Pt alert and oriented, casually dressed and groomed. Eye contact good. Motor activity appropriate. Speech within normal limits. Affect congruent, mood euthymic. Thoughts linear, logical, no signs of hallucinations or delusions. Client Response/Progress/Benefit: []Pt attentive listening to peers, contributing at times, and taking notes during session. Listened as the group brainstormed the positive and negative aspects of stress on physical and mental health. Group did well to identify the benefits of stress as well as the impact of distress on performance and mental health. Pt?s top stressors right now are OCD, finances, and childcare/family stressors Pt shared their ?stress jar? is about 80% full which pt contributes to being on the right medication and using calming coping skills to manage anxiety. Pt shared when their 'stress jar' is overflowing, pt gets irritable, does not sleep, cries, and gets snappy. Pt seemed to benefit from increased self-awareness of current stressors and impact stress has on mental health. Will continue IOP tx to promote gains, further reduce intensity of intrusive thoughts, and improve daily functioning. Narrative Note: []
--- NOTE | 2022-04-09 11:15 | BH.SGPN.GN ---
Behaviors/Verbalizations/Mental Status: []Pt alert and oriented, casually dressed and groomed. Eye contact good. Motor activity appropriate. Speech within normal limits. Affect congruent, mood euthymic. Thoughts linear, logical, no signs of hallucinations or delusions. Client Response/Progress/Benefit: []Pt participated at times during group discussions. Attentive during psychoeducation on the 4 A's of Coping with Stress (Avoid, Alter, Adapt, Accept). Participated in experiential activity in which group members had to utilize stress management skills in the moment. Pt agreed with peers that their anxiety and sense of urgency was a barrier and helped group problem-solve solutions. Pt engaged in review of the 4 A?s and picked wanting to work on accepting stressors that are out of her control and learning to accept help when others offer it.? Benefited from processing in the moment stress management strategies and identifying new ways to cope with stress. Will continue in IOP to further reduce intrusive thinking, improve self-compassion, and promote gains. Narrative Note: []
--- NOTE | 2022-04-13 09:05 | BH.SGPN.GN ---
Behaviors/Verbalizations/Mental Status: [] Eye contact is appropriate. Motor activity is appropriate. Appearance is casual. Speech is normal. Mood is euthymic. Affect is full. Thoughts are linear and logical. No evidence of psychosis. Reviewed daily check in sheet and no reports of suicidal ideations or intent. Client Response/Progress/Benefit: [] Pt was an active participant in group discussion. Attentive. Emotion for today is confidant. Mental health win is that she was dancing and playing around with her kids. Feels like she is returning to baseline stating I'm feeling more comfortable in my skin. Improved communication as she is not avoiding certain topics or challenging conversations. 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 Reaching out and utilizing support when needed to avoid getting overwhelmed. Progress noted per pt report. Benefited from group support, encouragement, and feedback. Will continue in IOP to maintain gains and prevent decompensation. Narrative Note: []
--- NOTE | 2022-04-13 10:10 | BH.SGPN.GN ---
Behaviors/Verbalizations/Mental Status: []Client alert and oriented, casually dressed and groomed. Eye contact good. Motor activity appropriate. Speech within normal limits. Affect congruent, mood euthymic. Thoughts linear, logical, no signs of hallucinations or delusions. Client Response/Progress/Benefit: []Client responded well to session AEB sharing and listening attentively to others. Client indicated her sister as a support for her and connected with opening quote. Clinician provided psychoeducation on types of support including internal and external support, with client identifying co workers as possible supports. Client participated in experiential activity illustrating the importance of having multiple social supports. Client provided supportive feedback and problem solving throughout group activity. Client participated in group processing of the activity. Client appeared to benefit from increased knowledge of the benefits of social support and greater self-awareness. Will continue IOP treatment with possible discharge this week to continue increasing application of healthy coping skills and decreasing negative self-talk to improve daily functioning. Narrative Note: []
--- NOTE | 2022-04-13 11:10 | BH.SGPN.GN ---
Behaviors/Verbalizations/Mental Status: []Client alert and oriented, casually dressed and groomed. Eye contact good. Motor activity appropriate. Speech within normal limits. Affect congruent, mood euthymic. Thoughts linear, logical, no signs of hallucinations or delusions Client Response/Progress/Benefit: []Client was an active participant throughout AEB contributing to discussion, providing personal examples, and taking notes. Client processed emotions she felt in the activity and how she coped in the moment with indicating high stress during group due to challenge of working together. She provided input during discussion on the types of support our supports can provide. Client was able to identify current support system and barriers that get in the way of using supports. Client stated she struggles most withe informational support and plans on to start reading self help book and reaching out to help strengthen this area. Connected impact this can have on her mental health. Client seemed to benefit from identifying the type of support she needs to work on improving. Client recommended to continue IOP to continue use of healthy coping, challenge distorted thoughts and prevent decompensation. Narrative Note: []
--- NOTE | 2022-04-14 09:00 | BH.SGPN.GN ---
Behaviors/Verbalizations/Mental Status: []Pt alert and oriented, casually dressed and groomed. Eye contact good. Motor activity appropriate. Speech within normal limits. Affect congruent, mood euthymic. Thoughts linear, logical, no signs of hallucinations or delusions. Reviewed pt?s symptom tracker, no risk for suicidal ideation, plan, or intent as of 04/14/22 Client Response/Progress/Benefit: []Pt responded well to session, attentive and engaged. Pt reports feeling anxious but a good anxious this morning as pt will be going to a concert today with her sister. Pt has been using self-care which has helped pt set boundaries with others, reduce mom-guilt, and take time for things pt enjoys. Pt stated she is starting to feel like her old-self again and peers gave pt feedback reinforcing her progress. Pt shared her stressor today is that pt has not yet heard back about a job, but pt is trying not to catastrophize. Pt appeared to benefit from connecting with peers and reflecting on progress. Will continue IOP tx to further improve daily functioning and further reduce intensity of symptoms. Narrative Note: []
--- NOTE | 2022-04-14 10:10 | BH.SGPN.GN ---
Behaviors/Verbalizations/Mental Status: [] Client alert and oriented, neatly dressed and groomed. Eye contact good. Motor activity appropriate. Speech within normal limits. Affect congruent, mood euthymic. Thoughts linear, logical, no signs of hallucinations or delusions. Client Response/Progress/Benefit: [] Client was an active participant in group discussions. Attentive during psychoeducation on 4 types of conflict styles (Competing, Collaborating, Avoiding, and Accommodating). Worked with group to define conflict and identify how conflict is helpful. With peers identified barriers to addressing or managing conflict which included: fear of upsetting others, fear of the outcome, and feeling vulnerable. Client shared how conflict can be a good thing when we are advocating for ourselves. Benefited from group due to increase insight and awareness of benefits to conflict, conflict styles, and obstacles to managing conflict. Will continue in IOP to increase overall functioning and increase healthy coping skills. Narrative Note: []
--- NOTE | 2022-04-14 11:15 | BH.SGPN.GN ---
Behaviors/Verbalizations/Mental Status: [] Client alert and oriented, neatly dressed and groomed. Eye contact good. Motor activity appropriate. Speech within normal limits. Affect congruent, mood euthymic, Thoughts linear, logical, no signs of hallucinations or delusions. Client Response/Progress/Benefit: []Client engaged in session AEB contributing to discussion and engaging in activity. Client did well to review current conflict style and its impact on mental health with identifying herself as avoidant in her conflict resolution style with lacking confidence in herself. Attentive and taking notes during discussion on strategies for more effectively managing conflict in personal life. client participated in activity and did well to be assertive and collaborating. client given handout on fair fighting rules. Appeared to benefit from gaining strategies to help client better manage conflict. Will continue IOP tx to reduce cognitive distortions, improve self-worth, and increase self-care. Narrative Note: []
--- NOTE | 2022-04-16 09:05 | BH.SGPN.GN ---
Behaviors/Verbalizations/Mental Status: [] Eye contact is good. Motor activity is appropriate. Appearance is casual. Speech is Appropriate. Mood is euthymic. Affect is full. Thoughts are linear and logical. No evidence of psychosis. Reviewed daily check in sheet and no reports of suicidal ideations or intent. Client Response/Progress/Benefit: [] Pt was an active participant in group discussion. Attentive. Provided appropriate feedback. Daily symptom tracker notes no significant distress. Emotion for today is not bad. Mental health win is advocating for herself regarding her old employer which resulted in getting a raise to return to work. Pt has noticed anxiety symptoms in her daughter which are similar to pt's anxiety. Pt shared the severity of her anxiety and how it has impacted her life and functioning has some concerns for her daughter. Daughter is not sleeping well which has always been an issue for patient in the past as well. Group was beneficial in providing feedback and reassurance. Progress noted per pt report. Will continue in IOP to maintain gains and prevent decompensation. Narrative Note: []
--- NOTE | 2022-04-16 10:15 | BH.SGPN.GN ---
Behaviors/Verbalizations/Mental Status: []Eye contact is good. Motor activity is appropriate. Appearance is casual. Speech is Appropriate. Mood is anxious and euthymic. Affect is constricted. Thoughts are linear and logical. No evidence of psychosis. Client Response/Progress/Benefit: []Pt was an active participant in group discussion and activity. Attentive during psychoeducation on the stages of change. Pt participated in interactive discussion on emotions associated with change (happy, anxious, proud, shocked, surprised, guilty, etc). Pt along with peers identified barriers that may prevent one from making change such as difficulty stepping out of her comfort zone, fear, and not liking being out of control. Group able to identify the benefits to changes such as acceptance, patience, increased self-confidence, and personal growth. Benefited from increased awareness of emotions related to change, the change process, and benefits/barriers to change. Will continue in IOP to further improve daily functioning, reduce negative thinking patterns, and improve self-confidence. Narrative Note: []
--- NOTE | 2022-04-16 15:08 | BH.MDN_ITS ---
Multi-Disciplinary Note - Note 45-min Individual Time Started:: 11:50 Date: 04/16/22 Purpose of session/treatment goals addressed:: To work through current stressors, triggers, and negative thinking. To practice cognitive restructuring and self-compassion. Eye Contact:: Good Motor Activity:: Appropriate Appearance:: Casual Speech:: Appropriate Mood:: Anxious Affect:: Congruent - tearful Thoughts:: Circular, No evidence of hallucinations/delusions noted Staff Interventions:: thought challenging, CBT techniques, mindfulness skills, strengths perspective Client Response:: Pt responded well to session, open to meeting with therapist. Pt shared she has been feeling much better and seeing progress. Then pt became tearful as she was talking about her daughter's recent anxiety episode and shared I don't know why I'm crying. Normalized making progress and having moments that are difficult which pt appeared to benefit from. Pt shared about recent stressors and upcoming stressors. Pt gained awareness that stressors can be positive and still cause anxiety and feeling overwhelmed, such as pt going on vacation. Pt also got a job that she will be starting in a few weeks. 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 Pt shared I'm worried I'll go backwards but pt was able to challenge this perspective. Pt reminded herself of all the progress she has made so far including reduced anxiety, improved sleep, and taking medications consistently despite being anxious. Discussed ways to support pt's daughter and still have boundaries. Pt is open to her daughter getting counseling, but pt's is against this. Pt wants to have a talk with her again about getting their daughter help and communicating how this would also help pt. Pt and her family are going on a mini vacation this weekend and pt is excited about this, but stressed with packing. Pt plans to break up the tasks for packing to make it more tolerable. Risks/Concerns:: Pt denies any suicidal ideations, plan, or intent as of 04/16/22. No thoughts of . Progress Toward Goals/Plan:: Pt was tearful and anxious today, but overall she is progressing well per her report. Pt's mood today is likely triggered by her daughter's worsening anxiety, positive changes coming up, and not getting a lot of sleep last night. Pt able to recognize progress in many areas, but pt continues to struggle with intrusive thoughts and anxiety at times. Pt less anxious by the end of session. Pt will continue IOP tx to promote mood stability, improve self-compassion, and further reduce anxiety. Time Stopped:: 12:40
--- NOTE | 2022-04-22 09:01 | BH.SGPN.GN ---
Behaviors/Verbalizations/Mental Status: []Eye contact is good. Motor activity is appropriate. Appearance is casual. Speech is Appropriate. Mood is euthymic. Affect is congruent. Thoughts are linear and logical. No evidence of psychosis. Reviewed daily check in sheet and no reports of suicidal ideations or intent. Client Response/Progress/Benefit: []Client responded well to session AEB listening attentively to others and providing feedback and thoughts to group. Client reported she went to [place] with her family for a short vacation. Client reported mental health positives as getting to take her [place] on tubes [place] the river and overall had a good time. Client stated her anxiety was decreased and she was able to manage emotions better. Client stated additional positive as unpacking when she got home instead of putting it off for a week. Client reported she is happy she was able to relax and have quality time with her family. Client reported mental health stressor has money. Seemed to benefit from peer support and expressing thoughts. Client to continue IOP to consistently apply healthy coping skills, continue to manage anxious thoughts and prevent decompensation.
--- NOTE | 2022-04-22 10:10 | BH.SGPN.GN ---
Behaviors/Verbalizations/Mental Status: [] Eye contact is good. Motor activity is appropriate. Appearance is casual. Speech is Appropriate. Mood is euthymic. Affect is full. Thoughts are linear and logical. No evidence of psychosis. Client Response/Progress/Benefit: [] Pt was an active participant in group discussion. Attentive during psychoeducation and participated in group activity. Participated in interactive group discussion on internal and external barriers to mental health progress. Group identified examples of internal barriers as; negative thoughts, anxiety, cognitive distortions, and past experiences. External barriers identified were toxic people, lack of support/resources, stressful work, and housing issues. Pt josé picture of her currently reality which depicted her being happy and together with her whole family enjoying life. Sometimes I still feel stuck and my worry is still hovering. Pt's desired reality picture is basically the same but I'm more confident and less stressed. Benefited from increased awareness of current barriers to progress as well as current/desired realities. Plan is to continue in IOP to maintain gains and prevent decompensation. Narrative Note: []
--- NOTE | 2022-04-22 11:15 | BH.SGPN.GN ---
Behaviors/Verbalizations/Mental Status: []Pt alert and oriented, neatly dressed and groomed. Eye contact good. Motor activity appropriate. Speech within normal limits. Affect congruent, mood euthymic. Thoughts linear, logical, no signs of hallucinations or delusions. Client Response/Progress/Benefit: []Pt engaged during activity, encouraging peers and contributed as group brainstormed ideas on how to cope with internal barriers that keep pts stuck from moving towards goals. Able to identify barriers to desired reality. Identified barriers to current reality to include: fear of change, not telling people her needs, and not spending enough time with her children individually. Pt wants to work on overcoming the barrier of not spending time with her children individually by taking one kid at a time out to do errands which will give them quality time. Benefited from group by identifying obstacles and solutions to desired reality.? Pt will continue IOP tx to promote gains, further decrease anxiety, and increase self-confidence to help pt return to work. Narrative Note: []
--- NOTE | 2022-04-23 09:10 | BH.SGPN.GN ---
Behaviors/Verbalizations/Mental Status: [] Eye contact is good. Motor activity is appropriate. Appearance is casual. Speech is Appropriate. Mood is euthymic. Affect is full. Thoughts are linear and logical. No evidence of psychosis. Reviewed daily check in sheet and no reports of suicidal ideations or intent. Client Response/Progress/Benefit: [] Pt was an active participant in group discussion. Attentive. Provided appropriate feedback. Daily symptom tracker notes no significant distress. Emotion for today is going with the flow. Mental health win involves self-care this afternoon. Stressors is that her has been working 2nd shift which has increased her responsibilities with the children during nighttime activities. Also stressors regarding finances. States Its stressful and more anxiety provoking but I'm OK with it Shared skills that she is using as well as progress noting that she was have been overwhelmed significantly in the past. She continues to have healthy anxiety and ruminations at times regarding her medications, however continues to take them as prescribed. Progress noted. Benefited from group support, encouragement, and feedback. Will continue in IOP to maintain gains. Plan to discharge next week. Narrative Note: []
--- NOTE | 2022-04-23 10:10 | BH.SGPN.GN ---
Behaviors/Verbalizations/Mental Status: []Pt alert and oriented, casually dressed and groomed. Eye contact good. Motor activity appropriate. Speech within normal limits. Affect congruent, mood euthymic and anxious. Thoughts linear, logical, no signs of hallucinations or delusions. Client Response/Progress/Benefit: []Pt was an engaged participant AEB pt listening attentively to others. Attentive during psychoeducation on communication styles. Assisted group with identifying barriers of effective communication which included: ?dropping hints,? shutting down, assumptions, yelling, and being passive-aggressive. Pt identified they most often use passive communication. Pt reports being passive impacts pt by causing pt to feel emotionally drained and pt ends up doing things she does not want to do. However, pt has been working on being more assertive. Benefited from increased awareness of different communication barriers, styles, and the importance of communicating effectively to improve mental wellness. Will continue IOP tx to maintain gains, further increase self-confidence, and improve work-related functioning. Narrative Note: []
--- NOTE | 2022-04-23 11:10 | BH.SGPN.GN ---
Behaviors/Verbalizations/Mental Status: []Pt alert and oriented, casually dressed and groomed. Eye contact good. Motor activity appropriate. Speech within normal limits. Affect congruent, mood euthymic. Thoughts linear, logical, no signs of hallucinations or delusions Client Response/Progress/Benefit: []Pt responded well to session AEB pt listening attentively to others and providing input during group discussion on the pay offs and costs of the different communication styles. Pt recognizes negative impact on relationships when she doesn't use healthy communication style. Pt did well in the activity to be assertive and ask for feedback. Recognizes if group wasn't assertive in activity they wouldn't have been successful. Attentive during psychoeducation on interpersonal DBT skill KENYA. Pt set a goal to work on appearing confident and being assertive. Client stated she tends to look around when trying to communicate and often over explains self when has to say no. Pt stated working on those two goals could help improve commuincation skills. Pt seemed to benefit from increasing awareness of healthy strategies to improve communication. Pt to continue IOP to maintain gains and prevent decompensation.
--- NOTE | 2022-04-23 13:42 | BH.MDN_ITS ---
Multi-Disciplinary Note - Note 45-min Individual Time Started:: 12:05 Date: 04/23/22 Purpose of session/treatment goals addressed:: To review progress, begin pt's maintenance plan, and discuss aftercare. Eye Contact:: Good Motor Activity:: Appropriate Appearance:: Neat Speech:: Appropriate Mood:: Euthymic Affect:: Full Thoughts:: Linear, Logical, No evidence of hallucinations/delusions noted Staff Interventions:: discharge planning, strengths perspective, other - began pt's maintenance plan Client Response:: Pt responded well to session, open to meeting with therapist. Pt reports the weekend trip with her family went well and pt was able to enjoy herself. Pt shared she and her have been communicating well. 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 Pt reflected on her progress and overall improved mood. Pt receptive to working on her maintenance plan and with therapist worked on identifying triggers, coping skills, and warning signs for anxiety and OCD. Pt also identified what she wants to avoid which included giving into the intrusive thoughts and isolating herself. Pt stated she wants to know if she can switch from taking her sleep medication to just taking melatonin. Therapist will reach out to [facility] psychiatrist for more information. Risks/Concerns:: No SI or thoughts of reported. Progress Toward Goals/Plan:: Pt continues to make progress towards tx goals AEB pt's self-report of improved functioning at home and improved familial functioni ng. Pt also reports communication with her has improved and she is feeling happy more often. Pt continues to struggle with sleep, mild anxiety and intrusive thoughts, and low self-esteem. Pt will continue [facility] tx to further improve mood, reinforce healthy coping skills, and increase self-confidence. Time Stopped:: 12:45
--- NOTE | 2022-04-26 09:10 | BH.SGPN.GN ---
Behaviors/Verbalizations/Mental Status: [] Eye contact is good. Motor activity is appropriate. Appearance is casual. Speech is Appropriate. Mood is euthymic. Affect is full. Thoughts are linear and logical. No evidence of psychosis. Reviewed daily check in sheet and no reports of suicidal ideations or intent. Client Response/Progress/Benefit: [] Pt was an active participant in group discussion. Attentive. Provided appropriate feedback. No significant distress noted on daily symptom tracker. Emotion for today is drained but not defeated. Shared that a mental health win was working through anxiety over the weekend. Shared that she experienced intrusive thoughts which in the past could have led to significant anxiety, however able to utilize skills. Completed self-care and was open to support from friend. Ruminations on her sleep which was not good last night. She wants to move from prescription medications to melatonin for sleep however this has been challenging. Progress noted. Benefited from group support, encouragement, and feedback. Will continue in [facility] to maintain gains. Plan to discharge on 04/28/22. Narrative Note: []
--- NOTE | 2022-04-26 10:10 | BH.SGPN.GN ---
Behaviors/Verbalizations/Mental Status: [] Client alert and oriented, casually dressed and groomed. Eye contact good. Motor activity appropriate. Speech within normal limits. Affect congruent, mood euthymic. Thoughts linear, logical, no signs of hallucinations or delusions. Client Response/Progress/Benefit: [] Client responded well to session AEB contributing to discussion, taking notes, and listening attentively to others. Group discussed the benefits of managed anger and anger as a secondary emotion. Client shared perspective on negatives from acting out in anger as stress, broken relationship, and a negative toll on mental health. Client completed anger iceberg worksheet, reporting outward personal signs of anger as isolate, breakdown, and hurting herself. Identified underlying emotions that contribute to anger including embarrassment, grief, shame, and being tired.. Appeared to benefit from increased knowledge of the underlying emotions that impact anger and increased self-awareness of the internal and external consequences of anger. Will continue IOP tx to increase the use of healthy coping skills, challenge intrusive thoughts, and increase overall functioning with expected discharge this week. Narrative Note: []
--- NOTE | 2022-04-26 11:15 | BH.SGPN.GN ---
Behaviors/Verbalizations/Mental Status: [] Client alert and oriented, neatly dressed and groomed. Eye contact good. Motor activity appropriate. Speech within normal limits. Affect congruent, mood euthymic, Thoughts linear, logical, no signs of hallucinations or delusions. Client Response/Progress/Benefit: [] Client was an engaged participant throughout group and activity AEB client providing input throughout discussion. Client contributed to the continued discussion of how people express anger as well as the consequences.of anger. Client reported her consequences anger as loss of respect from others. Group brainstormed with group healthy coping skills to help manage anger which included: mindfulness, deep breathing, exercising going outside, and practicing affirmation. Client selected looking at things through a different perspective as coping skill to manage anger. Client appeared to benefit from brainstorming with the group potential strategies to manage anger in healthy ways. Recommended continued IOP tx to increase positive self-talk, further decrease anxiety, and improve emotional regulation. Narrative Note: []
--- NOTE | 2022-04-27 09:00 | BH.SGPN.GN ---
Behaviors/Verbalizations/Mental Status: []Pt alert and oriented, neatly dressed and groomed. Eye contact good, motor activity appropriate, speech WNL. Affect congruent, mood euthymic. Thoughts linear, logical, no signs of hallucinations or delusions. No risk reported on pt's daily symptom tracker. Client Response/Progress/Benefit: [] Pt responded well to session, attentive and providing supportive statements. Pt reports feeling mellow this morning as pt has been much less anxious compared to six weeks ago. Pt's last day of IOP tx is this week and she reflected on some of the growth she has seen in herself since admission. Pt stated she is now able to accept taking medication for sleep and anxiety. Pt is also addressing things that make her anxious rather than avoiding them. Pt appeared to benefit from focusing on her progress and connecting with peers. Pt will discharge from IOP tx tomorrow but can benefit from one more day to reinforce healthy coping skills. Narrative Note: []
--- NOTE | 2022-04-27 10:10 | BH.SGPN.GN ---
Behaviors/Verbalizations/Mental Status: [] Eye contact is good. Motor activity is appropriate. Appearance is casual. Speech is Appropriate. Mood is euthymic. Affect is congruent. Thoughts are linear and logical. No evidence of psychosis. Client Response/Progress/Benefit: [] Client responded well to session AEB sharing when prompted and listening attentively to others. Client participated in group discussion defining boundaries and why having healthy boundaries is important. Client shared she recently starting implementing more boundaries and feels more confident in herself. Client appeared to connect to psychoeducation on types of boundaries, including physical, emotional, and intellectual. Client listened attentively and nodding throughout discussion in which group members shared personal examples of different types of boundaries.. Client appeared to benefit from increased knowledge of the types of boundaries and increased self-awareness of personal boundaries. Will continue IOP treatment to use independent coping skills to improve daily functioning with expected discharge date his week. Narrative Note: []
--- NOTE | 2022-04-27 13:00 | BH.MDN ---
Multi-Disciplinary Note - Note 30-min Individual Time Started:: 11:25 Date: 04/27/22 Purpose of session/treatment goals addressed:: To address current stressors and progress made in IOP. Another goal was to discuss discharge and aftercare. Eye Contact:: Good Motor Activity:: Appropriate Appearance:: Casual Speech:: Appropriate Mood:: Euthymic Affect:: Congruent Thoughts:: Linear, Logical, No evidence of hallucinations/delusions noted Staff Interventions:: discharge planning, strengths perspective, other - Reviewed maintenance plan, coping skills, and aftercare plan. Client Response:: Pt responded well to session, open to meeting with therapist. Pt reflected on all the progress she has made while in IOP. Pt stated she is now able to say no and set healthier boundaries, she can practice self-care and not feel guilty, she can handle her intrusive thoughts and she feels like she is overcoming her fears, and she reports her communication is much improved. Pt is also returning to part-time work starting next week and although she feels slightly nervous about the change, pt also feels excited and more confident. Pt is going to follow up with [id number] for outpatient counseling and psychiatry. Pt shared she would also like to do IOP aftercare on . Pt stated there are still things she wants to improve upon such as ongoing self-advocacy and further increasing self-love. Pt shared with therapist a letter she wrote herself to remind herself of her progress. Pt also finished her maintenance plan and was encouraged to review it when needed. Risks/Concerns:: No report of HI, SI, or thoughts of . Progress Toward Goals/Plan:: Pt will discharge from IOP tx tomorrow as pt reports numerous areas of progress including improved functioning and mood. As noted above, pt reports feeling able to better manage her mental health symptoms and her symptoms have significantly reduced since admission. Pt can benefit from one more IOP day to reinforce healthy coping skills and provide closure to treatment. Time Stopped:: 11:55
--- NOTE | 2022-04-28 08:34 | BH.IGGP_ITS ---
Aftercare Plan - Demographics Treatment End Date:: 04/28/22 Psychiatrist:: Shilpa Mack Psychiatrist Office #:: [id number] [facility] Therapist:: Rama Burgess Therapist Phone #:: [phone] - Plan Details Progress/Aftercare Plan Details:: Pt has made significant strides since starting IOP as shown by her improved mood, reduced negative thinking, and improved self- love. When Pt started IOP she was experiencing significant anxiety, negative thinking, and lack of self-care. Now, Pt can catch and manage thoughts that reinforce OCD, anxiety, and low self-worth, she can give herself credit for her strengths and accomplishments, and she has learned to live in the [place]. Pt was highly active in both group and individual therapy sessions. Pt contributed to group discussions, offered emotional support to peers, and consistently followed through with her goals. In individual sessions, Pt was receptive to feedback, consistent with homework, and willing to push herself. Pt?s high motivation, willingness to challenging her thinking, and ability to connect the topics to her life were likely the reason for her significant progress. Pt's symptoms reduced by 89% overall, depression by 100%, anger by 100%, and anxiety by 100%. Pt plans to attend [facility] aftercare as well as follow up with her outpatient providers. Strategies for Success:: 1. Opposite action! Continue to break that cycle of anxiety and depression by doing the opposite of what your emotion or irrational thinking wants you to do 2. Remember that thoughts are thoughts NOT facts! You have power in if you give thoughts the time of day or not. 3. self-care! You deserve to take time for you and you also deserve to face the not so fun self- care 4. Self-compassion! You are human and you will make a mistake?BUT that doesn?t mean you are a failure or not good enough. Give yourself credit for all the wonderful things you do. 5. continue with your spiritual time in the mornings 6. Practice deep breathing, calming self-talk, and grounding 7. Practice positive self-talk and keep track of your wins. 8. Remember progress isn?t linear! You may have a setback or bump in the road, but that doesn?t mean you?ve lost all progress. Review your letter to yourself when needed. 9. self- reflect to help understand what your body needs vs what your emotions want you to do. taking a break vs isolating or avoiding 10. Live in the l[place]!! - Appointments Appointments/Referrals to Other Services:: 1. [id number] 04/29/22 at 9:00am 2. [facility] aftercare at 2:00pm-3:30pm - Medications Home Medications: Home Medications fluoxetine 20 mg capsule 40 mg PO DAILY 03/17/22 hydroxyzine pamoate 25 mg capsule (Vistaril) 50 mg PO QHS anxiety 30 days #60 caps 03/17/22 trazodone 50 mg tablet 50 - 100 mg PO QHS PRN PRN Insomnia 03/31/22 fluoxetine 20 mg capsule (Prozac) 20 mg PO DAILY 30 days #30 caps 04/28/22 melatonin 10 mg tablet 10 mg PO QHS 04/28/22
--- NOTE | 2022-04-28 08:35 | BH.DS_ITS ---
Discharge Summary - Demographics Date of Admission:: 03/15/22 Discharge Date: 04/28/22 Presenting Problems at Admission:: Pt is a 31-year-old female with a history of depression, anxiety, and OCD. Pt was referred to [facility] tx by her PCP due to worsening depression, fleeting SI, and panic attacks. Pt had an ER visit on 03/03/22 due to mental health concerns and was assessed by crisis. At admission, pt endorsed daily panic attacks, intrusive thoughts, poor sleep, poor appetite, low energy, low motivation, crying spells, anhedonia, and hopelessness. Pt reported intrusive thoughts daily and other OCD tendencies such as touching the door knob until it feels right. Pt had multiple stressors including raising 6 kids and financial stressors. Pt admitted to thoughts of not wanting to be alive at times, but denies any active suicidal ideations, plan, or intent. Pt had fear of acting on her intrusive thoughts and being alone. Pt's symptoms were impacting her social, familial, and every day functioning. Discharge Diagnoses:: Major depressive disorder, recurrent, severe without psychosis F 33.2; Obsessive-compulsive disorder Reason for Discharge:: Pt has accomplished her tx goals AEB overall symptom reduction of 89% since admission. Pt self-reports improved functioning, mood, and perspective on life. Pt no longer meets criteria for [facility] level of care and will transition to outpatient therapy. - Treatment Progress During Treatment & Response: Pt has made significant strides since starting IOP as shown by her improved mood, reduced negative thinking, and improved self-love. When Pt started IOP she was experiencing significant anxiety, negative thinking, and lack of self-care. Now, Pt can catch and manage thoughts that reinforce OCD, anxiety, and low self-worth, she can give herself credit for her strengths and accomplishments, and she has learned to live in the [place]. Pt was highly active in both group and individual therapy sessions. Pt contributed to group discussions, offered emotional support to peers, and consistently followed through with her goals. In individual sessions, Pt was receptive to feedback, consistent with homework, and willing to push herself. P t?s high motivation, willingness to challenging her thinking, and ability to connect the topics to her life were likely the reason for her significant progress. Pt's symptoms reduced by 89% overall, depression by 100%, anger by 100%, and anxiety by 100%. Pt plans to attend IOP aftercare as well as follow up with her outpatient providers. Issues Still to be Addressed:: Further improving self-love and self-compassion, boundary setting, further reducing OCD symptoms, and reinforcing healthy coping skills. Pt wants to continue to learn about herself and potentially go back to school one day. Discharge Recommendations/Instructions:: Pt has an appointment with [facility] at [address] 04/29/22 at 9:00am. Pt is to see Beata Omer for individual [facility] and will get medication management through [facility]. Pt also will start IOP aftercare on 05/13/22. Discharge Handout: Complete Discharge Handout with client on aftercare options and continuity of care.
--- NOTE | 2022-04-28 09:00 | BH.SGPN.GN ---
Behaviors/Verbalizations/Mental Status: []Pt alert and oriented, casually dressed and groomed. Eye contact good. Motor activity appropriate. Speech within normal limits. Affect congruent, mood euthymic. Thoughts linear, logical, no signs of hallucinations or delusions. Reviewed pt?s symptom tracker, no risk for suicidal ideation, plan, or intent. Client Response/Progress/Benefit: []Client responded well to session AEB client listening attentively to peers and sharing thoughts and feelings. Client reported mental health positive as taking two of her kids with her to the store and being able to manage her emotions more effectively. Client shared in the past when she would take her kids she would become quickly agitated with them and yell or want to leave the store. Client stated this time she was able to respond in a more light hearted manner which had a positive outcome. Client reported additional mental health positive is completing IOP and being able to note significant amount of progress since starting IOP. Client identified feeling blessed. Plan is for client to discharge from IOP today. Narrative Note: []
--- NOTE | 2022-04-28 10:15 | BH.SGPN.GN ---
Behaviors/Verbalizations/Mental Status: []Pt alert and oriented, neatly dressed and groomed. Eye contact good. Motor activity appropriate. Speech within normal limits. Affect congruent, mood euthymic. Thoughts linear, logical, no signs of hallucinations or delusions. Client Response/Progress/Benefit: []Pt responded well to session AEB sharing and listening attentively to others. Pt participated in group discussion defining taking action and sharing coming to IOP as a personal example. Group identified barriers to taking action, with examples of fear of failure and not wanting to feel uncomfortable. Clinician discussed how certain emotional states can color our perspective, describing it as ?what is driving your bus?. Pt identified all or nothing thinking, second-guessing, and fear of leaving comfort zone as driving their ?bus? most often.? Pt shared she has been able to take control of these more and pt feels like I'm learning myself again. Appeared to benefit from increased self-awareness and knowledge regarding examples and barriers to taking action. Will discharge from IOP as pt has accomplished tx goals and no longer meets criteria for IOP level of care. Narrative Note: []
--- NOTE | 2022-04-28 12:11 | PCM.BH.PN ---
Progress Note Progress Note: History of Present Illness/Interim History: [] The patient is a 31-year-old female with a history of depression, anxiety and OCD who is seen in follow-up at the [facility] behavioral health IOP program. I last saw the patient 4 weeks ago and no manic patient changes were made at that time. The patient states that she is doing well and feels a lot better than she did at the start of the program. Her OCD is much improved but there is still some present. The obsessive thoughts are still there but they do not consume me and anymore. However she does feel that the obsessions still decrease her quality of life somewhat. She is having some sleep issues where trazodone helps her with her sleep but the patient does not like to take medication and would rather just use melatonin but has not found it to be very effective. Panic attacks have greatly decreased. The patient denies passive thoughts of , suicidal ideation, homicidal ideation, hallucinations or delusions. Current Psychiatric Medications: [] Prozac 40 mg p.o. daily (dose increased 1 month ago); trazodone 50 mg p.o. nightly (she first took only a half a 1 and then started taking a whole 50 mg and it helped somewhat but not enough with her sleep). Melatonin 10 mg p.o. nightly Mental Status Examination: [] The patient is a 31-year-old female who appears normal for stated age and is casually dressed and groomed with good hygiene. She is cooperative and pleasant during the interview and has no psychomotor agitation or retardation. Eye contact is good and speech is normal rate and rhythm and fluent with no pressure. Affect is mildly constricted only. Thought process is goal-directed and organized thought content: There is evidence still of some intrusive thoughts but they are much less intrusive than before and the patient is able to ignore them more. There is no evidence of passive thoughts of , suicidal ideation, homicidal ideation, hallucinations or delusions. Reality testing is intact. Judgment is intact. Insight is good. Impulsivity low. Diagnoses: [] 1. Major depressive disorder, recurrent, severe without psychosis (resolved) 2. Obsessive-compulsive disorder 3. Primary support and financial issues Plan: [] The patient will be discharged from the IOP program after today as she has improved and her symptoms are much less intense. She felt safe during the interview and if it anytime she does not feel safe she will let us know or go to the emergency room. The patient after long discussion agrees to increase the Prozac to 60 mg p.o. daily despite the fact that she has not felt good about taking medication in the past. She understands that OCD typically does not respond except to high doses of medications and that it can take up to 12 weeks to get much improvement in symptoms when the dose is changed. Prescription was sent in for 20 mg of Prozac that the patient can add to her 40 mg that she has at home. The patient will continue to follow-up with her outpatient providers.
== END 2022-04-28 13:17 | disposition home or self-care (01) ==
LOC: BHIOP 07:25
PROVIDERS: PCP Family Medicine; Referring Provider Psychiatry & Neurology Psychiatry; Visit Provider Psychiatry & Neurology Psychiatry
DX: F33.2 Major depressive disorder, recurrent severe without psychotic features (principal); F42.9 Obsessive-compulsive disorder, unspecified; Z79.899 Other long term (current) drug therapy; F17.210 Nicotine dependence, cigarettes, uncomplicated
CPT/HCPCS: 99214; H2012; H2020; S9480; 90832; 90834

== ENCOUNTER 2022-05-06 08:00 | Outpatient (RCR) | payer MEDICAID, SELFPAY ==
--- NOTE | 2022-05-06 14:00 | BH.SGPN.GN ---
Behaviors/Verbalizations/Mental Status: []Client alert and oriented, casually dressed and groomed. Eye contact good. Motor activity appropriate. Speech within normal limits. Affect congruent, mood euthymic. Thoughts linear, logical, no signs of hallucinations or delusions. Client Response/Progress/Benefit: []Client responded well to session AEB sharing thoughts and feelings and providing feedback throughout. Client?s emotion today is content. Client reported she met with her new therapist last week and it overall went good. Client reported she met with her new medication prescriber and really liked the provider. Client reported in the last week she had a stuck anxious thought for three days but was able to work through it. Client stated she used skills of self-talk, challenging thoughts, and healthy distraction to help her cope with the stuck thought. Client stated she was frustrated because of the setback but recognizes setbacks will happen and she now has the tools to move forward. Contributed to strategies for improving effective creation and application of believable personal affirmations. Client wrote down three affirmations on notecards that she can post around her house. Client to continue aftercare group to promote gains and further increase application of healthy coping skills.
--- NOTE | 2022-05-06 15:09 | BH.COMM ---
Communication Note - Communication with Client Communication Note: Presented completed IOP and presents today to start relapse prevention group which meets once weekly (1.5 hours) for 10 weeks. Case discussed with Dr. Gupta with plan to admit with dx of F33.2
--- NOTE | 2022-05-06 16:14 | BH.MTP ---
Master Treatment Plan - Patient Information Program Physician:: Dr. Shilpa Mack Primary Therapist:: Rama GREEN - Psychiatric Diagnoses Psychiatric Diagnoses:: Major depressive disorder, recurrent, severe without psychosis F 33.2; Obsessive-compulsive disorder Diagnosis Code(s):: F 33.2 - Estimated LOS Estimated LOS (in weeks):: 8 Problem/Goal #1 - Problem/Goal #1 Stated Goal:: client will maintain or see a reduction in symptoms AEB client score on the DSM 5 cross-cutting measure and improve client's daily functioning. - Objectives Objective #1 Stated Objective: Client will continue to consistently apply healthy coping skills to maintain progress made in IOP tx. Interventions: Through group therapy, client will review warning signs and triggers as well as healthy coping skills learned in IOP tx to successfully maintain gains while transitioning into outpatient therapy. Discharge Criteria: Client will have accomplished this goal when client's score on the DSM-5 cross-cutting measure has maintained or reduced over a 8 week period. Target Date: 07/01/22 Review Date: 06/03/22 Status: open Objective #2 Stated Objective: Client will learn and utilize 2-3 maintenance strategies to prevent decompensation from original IOP DSM-5 scores. Interventions: Through group therapy, client will be provided with education on healthy maintenance behaviors, relapse prevention techniques, and healthy coping strategies. Discharge Criteria: Client will have accomplished this goal when can report using at least 2 maintenance skills to prevent decompensation compared to original IOP DSM-5 scores Target Date: 07/01/22 Review Date: 06/03/22 Status: open
== END 2022-05-09 23:59 ==
LOC: BHOG 08:00
PROVIDERS: PCP Family Medicine; Referring Provider Psychiatry & Neurology Psychiatry; Visit Provider Psychiatry & Neurology Psychiatry
DX: F33.2 Major depressive disorder, recurrent severe without psychotic features (principal); F42.9 Obsessive-compulsive disorder, unspecified
CPT/HCPCS: 90853

== ENCOUNTER 2022-05-10 07:41 | Outpatient (RCR) | payer MEDICAID, SELFPAY ==
--- NOTE | 2022-05-13 14:00 | BH.SGPN.GN ---
Behaviors/Verbalizations/Mental Status: []Client alert and oriented, casually dressed and groomed. Eye contact good. Motor activity appropriate. Speech within normal limits. Affect congruent. Mood euthymic. Thoughts linear, logical, no signs of hallucinations or delusions. Client Response/Progress/Benefit: []Client responded well to session AEB listening attentively to others and contributing to discussion at times. Client reported has been following through with seeing outpatient providers and taking medications. Client stated positive as teaching daughter proper breathing skills to help daughter manage anxiety in the moment. Reported stressor is having difficulty with staying asleep. Client attentive and engaged in discussion about personal values. Client worked with group to identify benefits of knowing personal values and how mental health can negatively be impacted when actions are not congruent with personal values. Client identified her top three personal values include: physical wellbeing, mental health, and intimate realtionships. Able to identify several activities can engage in to meet those identified values. Client seemed to benefit from increased awareness of personal values and identifiying steps can take to ensure actions are meeting her values. Client to continue aftercare to maintain gains and prevent decompensation.
--- NOTE | 2022-05-20 14:00 | BH.SGPN.GN ---
Behaviors/Verbalizations/Mental Status: []Pt alert and oriented, casually dressed and groomed. Eye contact good. Motor activity appropriate. Speech soft. Affect congruent-tearful, mood depressed. Thoughts linear, logical, no signs of hallucinations or delusions. Client Response/Progress/Benefit: []Pt receptive of session, engaged throughout. Pt shared she has been taking her meds, she sees her counselor weekly,?and she is up to date with psychiatry. Pt reports using thought challenging and getting a membership to the gym this week. Pt was tearful throughout check-in, but her mood improved by the end of session. Receptive of discussion on sitting with the uncomfortable and emotional urges. Pt contributed to the discussion of distress tolerance and how building distress tolerance can help improve mood stability and resilience. Pt selected having her children clean something without pt?s help?as the situation that would make pt uncomfortable. Pt will practice breathing and healthy distractions to help with this. Pt seemed to benefit from support from peers and increasing understanding of distress tolerance. Will continue IOP aftercare group to maintain gains and reinforce healthy coping skills.? Narrative Note: []
--- NOTE | 2022-05-20 16:18 | BH.TPR ---
Treatment Plan Review Date of Admission:: 05/06/22 Date of Treatment Plan Review:: 05/20/22 Admitting Diagnoses:: Major depressive disorder, recurrent, severe without psychosis F 33.2; Obsessive-compulsive disorder Current Diagnoses:: Major depressive disorder, recurrent, severe without psychosis F 33.2; Obsessive-compulsive disorder Patient's Response to Treatment:: Pt responding well to treatment AEB pt's consistent attendance, active engagement in group discussions, follow up with outpatient therapy and psychiatry, and reporting use of skills outside treatment environment. Pt utilizes IOP aftercare to process current stressors and identify coping strategies. Status of Current Problems and Symptoms: Ongoing stressors include maintaining progress made in IOP, returning to work part-time while still being the primary caregiver for her children, marital tension at times, and lack of self-care recently. Problem #1 Problem Name:: Pt will maintain or see a reduction in sx Status of Goals:: Obj 1 complete with ongoing work encouraged- Pt has been able to maintain gains made in IOP as pt?s DSM-5 scores are 75% lower than they were at IOP admission. Based on pt's self-report she is currently experiencing a slight increase in depressive symptoms due to stressors with work-life balance and a recent conflict with her . But pt reports her intrusive thoughts are much less severe. Obj 2 - complete with ongoing work encouraged. Pt has been consistently reporting using grounding skills, self-talk, and sitting with the uncomfortable. Team Recommendations:: Recommended client continue IOP aftercare group in addition to attending regular outpatient counseling in order to maintain gains.
--- NOTE | 2022-06-03 14:00 | BH.SGPN.GN ---
Behaviors/Verbalizations/Mental Status: []Pt alert and oriented, casually dressed. Eye contact good. Motor activity appropriate. Speech within normal limits. Affect congruent, mood slightly anxious. Thoughts linear, logical, no signs of hallucinations or delusions. Client Response/Progress/Benefit: []Pt responded well to session, engaged and providing emotional support. Pt checked in using aftercare worksheet and pt reports she had psychiatry and therapy appointments this week and pt had some medication changes to help with sleep. Pt has been using coping skills such as thought challenging, opposite action, and self-compassion. Pt participated in the discussion of self-love and how one can increase this. Pt reported comparing herself to others is a barrier to self-love, but pt has been working on this. Pt selected strategies to improve self-love and shared this week pt is going to focus on reducing how much she compares herself to others by checking social media less and practicing more mindfulness. Pt appeared to benefit from increasing skills to build self-love. Pt will continue IOP aftercare to further increase mood stability and promote gains made in IOP. Narrative Note: []
== END 2022-06-09 23:59 ==
LOC: BHOG 07:41
PROVIDERS: PCP Family Medicine; Referring Provider Psychiatry & Neurology Psychiatry; Visit Provider Psychiatry & Neurology Psychiatry
DX: F33.2 Major depressive disorder, recurrent severe without psychotic features (principal); F42.9 Obsessive-compulsive disorder, unspecified
CPT/HCPCS: 90853

== ENCOUNTER 2022-06-10 07:40 | Outpatient (RCR) | payer MEDICAID, SELFPAY ==
--- NOTE | 2022-06-10 14:00 | BH.SGPN.GN ---
Behaviors/Verbalizations/Mental Status: []Pt alert and oriented, casually dressed and groomed. Eye contact good. Motor activity appropriate. Speech within normal limits. Affect congruent-tearful, mood anxious. Thoughts linear, logical, no signs of hallucinations or delusions. Client Response/Progress/Benefit: []Pt responded well to session, Pt reports she has been keeping up with therapy, taking medications, and she sees her psychiatrist next week. Pt shared her intrusive thinking has been worse lately and she is not sleeping well. Pt has been trying to use her coping skills, but pt also feels frustrated about her symptoms. 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 Pt engaged well during the discussion of the components of self-compassion. Pt connected with the benefits of self-compassion and participated in the activity of reframing a recent setback using self-compassion. Pt used her recent negative thinking that she is a ?bad mother? and used the three pillars of self-compassion. Pt able to practice self-kindness and remind herself of the positive traits she has as a mother. Pt appeared to benefit from practicing self-compassion and connecting with peers. Will continue aftercare to promote mood stability and reinforce healthy coping skills. Narrative Note: []
--- NOTE | 2022-06-24 14:00 | BH.SGPN.GN ---
Behaviors/Verbalizations/Mental Status: []Pt alert and oriented, neatly dressed and groomed. Eye contact good. Motor activity appropriate. Speech within normal limits. Affect congruent, mood euthymic. Thoughts linear, logical, no signs of hallucinations or delusions. Client Response/Progress/Benefit: []Pt responded well to session, completed weekly check-in. Pt reports she met with her psychiatrist this week and recently saw her therapist. Pt reports she is having some medication issues and she continues to struggle with sleep. Pt shared she has been using self-compassion, opposite action, and talking about her emotions. Contributing during discussion of vulnerability and benefits of practicing vulnerability. Shared personal experience of the benefits of vulnerability. Discussed ways we avoid feeling vulnerable and how this negatively affects mental health and relationships. Pt shared she wants to work on being vulnerable by going for a bike ride with her sister kevon even though pt has not ridden a bike in years. Appeared to benefit from reflecting on the positive impact vulnerability can have on mental health. Will continue IOP aftercare to promote gains and reinforce healthy coping skills. Narrative Note: []
--- NOTE | 2022-07-01 13:55 | BH.SGPN.GN ---
Behaviors/Verbalizations/Mental Status: []Client alert and oriented, casual in appearance. Eye contact good.? Motor activity appropriate. Speech within normal limits. Affect congruent. Mood euthymic and anxious. Thoughts linear, logical, no signs of hallucinations or delusions Client Response/Progress/Benefit: []Pt responded well to session AEB providing input throughout and listening attentively to others. Pt reported mental health positive as taking time to do some self-care by going to the local [employer] [place] with her sister. Reports she is using sitting with the uncomfortable, positive quotes, mindfulness, and positive self-talk in order to maintain IOP gains. Pt stated she is regularly attending her outpatient counseling. Pt identified current stressor as ongoing issues with managing intrusive thoughts. Pt connected with self-reflection discussion and activity. Worked with group to identify the benefits of self-reflection, noting it can help to improve relationships. Seemed to benefit from identifying how to incorporate self-reflection into life more often. Agreeable to complete homework of reflecting on progress in aftercare as well as reports self-reflection goal of ?nature therapy?. Pt to continue aftercare to maintain gains and prevent decompensation. Narrative Note: []
--- NOTE | 2022-07-01 15:37 | BH.DS_ITS ---
Discharge Summary - Demographics Date of Admission:: 05/06/22 Discharge Date: 07/01/22 Presenting Problems at Admission:: Pt discharged from IOP tx and transitioned to IOP aftercare to maintain gains pt made in IOP and to reinforce healthy coping skills. At admission to IOP aftercare, pt continued to report symptoms of depression, anxiety, and OCD but of reduced intensity and frequency. Pt also was experiencing stressors of being a parent, returning to work, and managing daily stressors. Discharge Diagnoses:: Major depressive disorder, recurrent, severe without psychosis F 33.2; Obsessive-compulsive disorder Reason for Discharge:: Pt has accomplished tx goals AEB ability to maintain mood stability and gains made in IOP. Pt's DSM-5 scores decreased by an additional 86% from IOP admission. Pt will transition to traditional outpatient counseling. - Treatment Progress During Treatment & Response: Pt responded well and made progress in IOP aftercare as evidenced by pt's participation in group discussions and self- report of consistently applying coping skills. Pt's overall DSM-5 scores decreased by 86% from IOP admission. Pt?s depression decreased by 100% since original IOP admission, OCD symptoms decreased by 67%, and pt's scores for anxiety decreased by 100% compared to original IOP scores. Additionally, at discharge Pt was reporting consistently seeing her therapist, using healthy coping skills, and communicating with supports. Pt also reported increased ability to manage intrusive thinking and combat negative self-talk. Issues Still to be Addressed:: self-esteem, self-care maintenance, sleep issues, assertive communication, and unprocessed trauma and grief from losing her father. Discharge Recommendations/Instructions:: Pt will follow up with her outpatient providers at [place] [id number] for medication management and individual therapy. Discharge Handout: Complete Discharge Handout with client on aftercare options and continuity of care.
== END 2022-07-02 07:55 | disposition home or self-care (01) ==
LOC: BHOG 07:40
PROVIDERS: PCP Family Medicine; Referring Provider Psychiatry & Neurology Psychiatry; Visit Provider Psychiatry & Neurology Psychiatry
DX: F33.2 Major depressive disorder, recurrent severe without psychotic features (principal); F42.9 Obsessive-compulsive disorder, unspecified
CPT/HCPCS: 90853

== ENCOUNTER → 2022-06-12 | Outpatient (CLI) | payer MEDICAID, SELFPAY ==
[2022-06-12 10:17] LABS: Hematocrit 43.8 % (37-47); Hemoglobin 14.6 g/dL (12.0-15.0); Mean Corp Hgb Conc 33.3 g/dL (32-36); Mean Corpuscular Hgb 28.8 pg (27.0-32.0); Mean Corpuscular Volume 86.4 fL (81-99); Mean Platelet Vol. 10.1 fl (6.2-12.0); Platelet Count 212 K/mm3 (150-450); RBC Distribution Width CV 13.3 % (11.6-14.6); RBC Distribution Width SD 41.5 fl (35.1-43.9); Red Blood Count 5.07 M/mm3 (4.2-5.4); White Blood Count 6.5 K/mm3 (4.4-11.0)
[2022-06-12 10:53] LABS: ALB/GLOB Ratio 1.2 RATIO (0.9-2.4); AST(SGOT) 7 U/L (15-37); Alanine Aminotransfer ALT/SGPT 19 U/L (13-56); Albumin, Serum 3.7 g/dL (3.2-5.0); Alkaline Phosphatase 70 U/L (45-117); Anion Gap 5 (5-15); BUN 15 mg/dL (7-18); BUN/Creat Ratio 19.3 RATIO (10-20); Calcium,Total 8.8 mg/dL (8.5-10.1); Chloride 105 mmol/L (98-107); Creatinine, Serum 0.78 mg/dL (0.55-1.02); EST Glomerular Filtration Rate 92 mL/min (>60); Est Glom Filt Rate - Afr Amer 111 mL/min (>60); Ferritin 26 ng/mL (8-252); Globulin 3.2 g/dL (2.2-4.2); Glucose 96 mg/dL (74-106); Iron 87 ug/dL (50-170); Iron Binding Capacity,Total 295 ug/dL (250-450); PERCENT IRON SATURATION 29.5 % (15.0-55.0); Potassium 3.8 mmol/L (3.5-5.1); Protein, Total 6.9 g/dL (6.4-8.2); Sodium Level 141 mmol/L (136-145); Thyroid Stim Hormone (TSH) 1.04 uIU/mL (0.358-3.74)
[2022-06-14 08:51] LABS: Vitamin B12 363 pg/mL (211-911); Vitamin D,25 Hydroxy 19.9 ng/mL
== END | disposition home or self-care (01) ==
LOC: LAB 09:51
PROVIDERS: PCP Family Medicine; Referring Provider Physician Assistant; Visit Provider Physician Assistant
DX: Z79.899 Other long term (current) drug therapy (principal)
CPT/HCPCS: 36415; 80053; 82306; 82607; 82728; 82746; 83540; 83550; 84443; 85027

== ENCOUNTER → 2022-10-08 | Outpatient (CLI) | payer MEDICAID, SELFPAY | END | disposition home or self-care (01) | LOC: LABSPEC 15:28 | PROVIDERS: PCP Family Medicine; Visit Provider Nurse Practitioner Family | DX: J02.9 Acute pharyngitis, unspecified (principal) | CPT/HCPCS: 87070; 87077 ==

== ENCOUNTER 2023-02-22 10:02 | Emergency (ER) | payer MEDICAID, SELFPAY ==
[2023-02-22 10:02] VITALS: BP 124/85; PULSE 79; RESP 18; TEMP 36.8; O2SAT 99; BMI 39.4
--- NOTE | 2023-02-22 10:16 | RAD_ITS ---
STUDY: X-RAY - LEFT RADIUS AND ULNA REASON FOR EXAM: Female, 32 years old. Pain following a fall. TECHNIQUE: 2 view(s) of the forearm. COMPARISON: None. FINDINGS: Soft tissue swelling. Nondisplaced transverse fracture of the distal radial metaphysis. Tiny osteochondroma seen along the radial aspect of the distal radial shaft. Normal visualized ulna. RAD/Forearm 2 Views IMPRESSION: Nondisplaced transverse fracture of the distal radial metaphysis. Tiny osteochondroma arising from the radial cortical aspect of the distal radial diaphysis. Electronically Signed: Cl Rogers MD at 10:46 EDT ,
--- NOTE | 2023-02-22 10:16 | EX.ED.UPPERE ---
HPI History of Present Illness Chief Complaint: Upper Extremity Injury Informant: patient Occured/Mechanism Mechanism/Context: Yes fall Onset/Context/Timing Onset: Today Current Severity: Moderate Maximum Severity: Moderate Narrative Narrative: Patient fell from her daughter's bunk bed ladder injuring her left forearm. She states she put her hand out to catch herself and hyperextended her wrist. She states she felt a pop and now has pain to the distal half of her left forearm. She is right-hand dominant. She denies any other injury. [facility] Medical History Anxiety History of kidney stones Major depressive disorder, recurrent severe without psychotic features Obsessive compulsive disorder depression Home Medications fluoxetine 20 mg capsule 40 mg PO DAILY 03/17/22 [History Last Taken Unknown] hydroxyzine pamoate 25 mg capsule (Vistaril) 50 mg PO QHS anxiety 30 days #60 caps 03/17/22 [Rx Last Taken Unknown] trazodone 50 mg tablet 50 - 100 mg PO QHS PRN PRN Insomnia 03/31/22 [History Last Taken Unknown] fluoxetine 20 mg capsule (Prozac) 20 mg PO DAILY 30 days #30 caps 04/28/22 [Rx Last Taken Unknown] melatonin 10 mg tablet 10 mg PO QHS 04/28/22 [History Last Taken Unknown] hydrocodone-acetaminophen 5-325mg 5mg-325mg 1 tab PO Q6H PRN PRN Pain 3 days #10 TABLETS 02/22/23 [Rx Last Taken Unknown] Allergy/AdvReac Type Severity Reaction Status Date / Time No Known Allergies Allergy Verified 02/22/23 10:02 Surgical History History of tonsillectomy Social History Smoking Status: Never smoker ROS ROS ED Constitutional Constitutional ED: Denies chills or fever(s) Eyes Eyes: Denies discharge from eye(s) ENT ENT ED: Denies discharge from eye(s), rhinorrhea or sore throat Cardiovascular Cardiovascular: Denies chest pain Respiratory/Chest Respiratory/Chest: Denies cough or dyspnea Gastrointestinal Gastrointestinal: Denies abdominal pain, nausea or vomiting Genitourinary Genitourinary ED: Denies dysuria Musculoskeletal Musculoskeletal: Reports extremity pain; Denies back pain Integumentary Denies Abrasions or rash Neurologic Neurologic: Denies headache(s), paresthesias or weakness Allergic/Immunologic Allergic/Immunologic ED: Denies lip swelling or urticaria EXAM Physical Exam Const Vital Signs: 02/22/23 10:02 Temperature 98.3 F Temperature Source Temporal Pulse Rate 79 Respiratory Rate 18 Blood Pressure 124/85 H Blood Pressure Mean 98 Pulse Ox 99 Oxygen Delivery Method Room Air Positive well nourished and well developed General Appearance ED: well developed HEENT Reports normocephalic and head/scalp atraumatic Eyes PERRL and EOMs intact bilaterally Neck supple Chest Wall inspection of chest normal and palpation of chest normal Resp normal respiratory effort and clear to auscultation bilaterally Cardio regular rate and regular rhythm GI non-tender Palpation: soft Extremity Extremity Narrative: Tenderness outpatient over the distal half of the left forearm. No obvious deformity noted. No tenderness over the hand itself or at the shoulder. No focal tenderness appreciated to the radial head, however patient does have increased pain distally with supination. Neuro oriented x3 and no sensory deficits noted Sensorium / Orientation: alert Psych mental status grossly normal Skin no rashes or lesions noted MDM MDM MDM Narrative Medical decision making narrative: Patient took 600 mg of ibuprofen prior to arrival. Left forearm x-rays are obtained to evaluate for fracture. Differential diagnosis includes left forearm contusion, sprain, fracture. Treatment and Re-Evaluation Narrative: Left form x-rays per my interpretation reveal a distal radius fracture. Radiology interpretation is reviewed and agrees. Patient is given a dose of [place] here. AP Ortho-Glass splint is applied to the left upper extremity. Following splint application patient has good cap refill and can wiggle fingers. She will be given a sling. She has been seen by [facility] in the past and will follow up with them. Prescription for [place] will be sent to [facility]. Discharge Plan Triage Chief Complaint: Upper Extremity Injury ED Provider: Paula Gregorio Dx/Rx/DC Orders Clinical Impression: Fracture of left wrist Instructions: ED Fracture, Wrist, General Prescriptions: New hydrocodone-acetaminophen 5-325 mg tablet 1 tab PO Q6H PRN PRN (Reason: Pain) 3 Days Qty: 10 0RF No Action hydroxyzine pamoate [Vistaril] 25 mg capsule 50 mg PO QHS 30 Days Qty: 60 1RF Rx Instructions: Take 1 to 2 po q hs prn fluoxetine 20 mg capsule 40 mg PO DAILY Label Comments: take 1 capsule by mouth once daily trazodone 50 mg Tablet 50 - 100 mg PO QHS PRN PRN (Reason: Insomnia) fluoxetine [Prozac] 20 mg capsule 20 mg PO DAILY 30 Days Qty: 30 0RF Rx Instructions: Take one 20 mg with a 40mg for total of 60 mg. Patient has 40 mg at home. melatonin 10 mg Tablet 10 mg PO QHS Primary Care Provider: Edwin Macdonald Referrals: Edwin Macdonald MD [Primary Care Provider] - Derek Bravo MD [Med Staff - Active Staff] - 5-7 Days Disposition Disposition: Home, Self Care
[2023-02-22] MEDS: HYDROcodone Bitartrate/Apap 5/325 Tablet PO (10:37)
== END 2023-02-22 11:30 | disposition home or self-care (01) ==
PROVIDERS: Emergency Provider Emergency Medicine; PCP Family Medicine; Visit Provider Emergency Medicine
DX: S52.509A Unspecified fracture of the lower end of unspecified radius, initial encounter for closed fracture (principal); W06.XXXA Fall from bed, initial encounter
CPT/HCPCS: 29405; 73090; 99283

== ENCOUNTER 2023-03-17 20:53 | Emergency (ER) | payer MEDICAID, SELFPAY ==
[2023-03-17 20:53] VITALS: BP 144/92; PULSE 80; RESP 16; TEMP 35.9; O2SAT 98; BMI 42.1
[2023-03-17 21:12] VITALS: TEMP 35.9; O2SAT 98
--- NOTE | 2023-03-17 21:52 | EX.ED.DYSGE1 ---
HPI History of Present Illness Chief Complaint: Fall [facility] Medical History Anxiety History of kidney stones Major depressive disorder, recurrent severe without psychotic features Obsessive compulsive disorder depression Home Medications fluoxetine 20 mg capsule 40 mg PO DAILY 03/17/22 [History Last Taken Unknown] hydroxyzine pamoate 25 mg capsule (Vistaril) 50 mg PO QHS anxiety 30 days #60 caps 03/17/22 [Rx Last Taken Unknown] trazodone 50 mg tablet 50 - 100 mg PO QHS PRN PRN Insomnia 03/31/22 [History Last Taken Unknown] fluoxetine 20 mg capsule (Prozac) 20 mg PO DAILY 30 days #30 caps 04/28/22 [Rx Last Taken Unknown] melatonin 10 mg tablet 10 mg PO QHS 04/28/22 [History Last Taken Unknown] hydrocodone-acetaminophen 5-325mg 5mg-325mg 1 tab PO Q6H PRN PRN Pain 3 days #10 TABLETS 02/22/23 [Rx Last Taken Unknown] Allergy/AdvReac Type Severity Reaction Status Date / Time No Known Allergies Allergy Verified 03/17/23 21:11 Surgical History History of tonsillectomy Social History Smoking Status: Never smoker EXAM Physical Exam Const Vital Signs: 03/17/23 20:53 03/17/23 21:12 03/17/23 21:15 Temperature 96.6 F L 96.6 F L Temperature Source Temporal Pulse Rate 80 Respiratory Rate 16 Respiratory Effort Normal Non-Labored Normal Non-Labored Respiratory Depth Normal Respiratory Pattern Normal Blood Pressure 144/92 H Blood Pressure Mean 109 Pulse Ox 98 98 Oxygen Delivery Method Room Air 03/17/23 23:21 Temperature Temperature Source Pulse Rate 80 Respiratory Rate 18 Respiratory Effort Respiratory Depth Respiratory Pattern Blood Pressure 132/64 H Blood Pressure Mean Pulse Ox 97 Oxygen Delivery Method MDM MDM MDM Narrative Medical decision making narrative: HISTORY OF PRESENT ILLNESS: 32-year-old female here with fall. Notes mechanical fall prior to arrival. No head trauma no loss of consciousness. States he has right-sided rib pain that is worse with movement palpation and deep breaths. States she had a pop on her sternum when she fell. She denies any other pain in her extremities. Denies any back pain. Patient denies any saddle anesthesia, urinary tension, bowel or bladder incontinence, lower extremity weakness, fever or IV drug use, no recent spinal manipulation or surgery, no recent urinary catheterization. REVIEW OF SYSTEMS: Pertinent positives: Rib pain Pertinent negatives: Difficulty breathing PHYSICAL EXAM: Nursing triage notes reviewed, Vital signs reviewed Primary Survey Airway: Intact Breathing: Bilateral breath sounds Circulation: Palpable bilateral femorals, Palpable bilateral radial, Palpable bilateral DP and Palpable bilateral PT Disability / Spine precautions GCS Score: Eye Openin Verbal Response: 5 Motor Response: 6 Secondary Survey Constitutional: Please see MDM Head: Atraumatic, Midface stable, NO jaw malocclusion, No Cephalohematoma, and No Lacerations noted Eye: Pupils equal round and reactive to light, Extraocular muscles intact and No periorbital ecchymosis or stepoff, no evidence of entrapment ENT: Oropharynx clear, no lacerations, no hemotympanum, no raccoon eyes or rios sign Cervical spine / Neck: No cervical spine bony tenderness, crepitance, or stepoff deformity Trachea midline Lungs: Clear to auscultation, No asymmetric rise and No crepitus, no flail chest, TTP over right ribs Cardiac: Regular rate and rhythm and No murmurs Abdomen: Soft, Nontender and No rebound Pelvis: Pelvis stable to compression : No evidence of genital injury Back: No midline bony tenderness to thoracic/lumbar/sacral spines Neuro: At baseline, intact strength and sensation in bilateral upper and lower extremities. 2+ patellar reflexes bilaterally. Extremities: NO gross Deformities Psych: Normal affect Nursing triage notes reviewed, Vital signs reviewed MEDICAL DECISION MAKING: Chief Complaint: Fall, rib pain External records reviewed: No recent advanced imaging of the ribs Factors affecting care: History of nephrolithiasis, depression, anxiety, OCD Social determinants of health: Never smoker History obtained from others: Consults: None ALL IMAGES (IF OBTAINED) HAVE BEEN PERSONALLY REVIEWED AND INTERPRETED BY MYSELF. [facility] Narrative: Patient was hemodynamically stable, afebrile, nontoxic-appearing. Primary secondary trauma survey is remarkable for I considered the following differential diagnosis: Rib fracture, rib contusion, lung contusion, pneumothorax I obtained an x-ray of the chest, ribs rule out fracture dislocation pneumothorax pulmonary contusion. X-ray was personally reviewed by myself and shows no evidence of displaced rib fracture, pneumothorax or pulmonary contusion. Patient is likely suffering from rib contusion. She was given pain control instructions, incentive spirometer and return precautions. The patient and/or family, caregivers express understanding. The patient and/or family, caregivers agrees with the plan. Total critical care time today provided was at least 0 minutes. This excludes separately billable procedures. Critical care time (if documented) is secondary to the patient having high probability of clinically significant/life threatening deterioration in the patient's condition which required my urgent intervention. Shared decision making: I will have a discussion with the patient and or visitors regarding risk/benefits of further testing or admission. They will be made aware of of the risk/benefits inherent in this decision they will be given the opportunity to voice understanding. Radiography Diagnostic Testing: Clinical Impression(s) from Imaging Studies Ribs w/Chest X-Ray 03/17/23 22:10 IMPRESSION: No evidence of displaced rib fracture. Electronically Signed: Sunny Quinones DO at 22:39 EDT Reading Location ID and State: [facility] [place] Tel [phone], Service support , X-ray of the ribs and chest were personally reviewed by myself shows no evidence of obvious rib fracture, pneumothorax or pulmonary contusion. Discharge Plan Triage Chief Complaint: Fall ED Provider: Augie Goodrich Dx/Rx/DC Orders Clinical Impression: Contusion of rib Instructions: Bone Contusion Prescriptions: No Action hydroxyzine pamoate [Vistaril] 25 mg capsule 50 mg PO QHS 30 Days Qty: 60 1RF Rx Instructions: Take 1 to 2 po q hs prn fluoxetine 20 mg capsule 40 mg PO DAILY Label Comments: take 1 capsule by mouth once daily trazodone 50 mg Tablet 50 - 100 mg PO QHS PRN PRN (Reason: Insomnia) fluoxetine [Prozac] 20 mg capsule 20 mg PO DAILY 30 Days Qty: 30 0RF Rx Instructions: Take one 20 mg with a 40mg for total of 60 mg. Patient has 40 mg at home. melatonin 10 mg Tablet 10 mg PO QHS hydrocodone-acetaminophen 5-325 mg tablet 1 tab PO Q6H PRN PRN (Reason: Pain) 3 Days Qty: 10 0RF Primary Care Provider: Edwin Macdonald Referrals: Edwin Macdonald MD [Primary Care Provider] - Activity Restrictions/Additional Instructions: Thank you for trusting us with your care today! Please take Tylenol (2 pills, 650 mg), ibuprofen (2 pills, 400 mg) every 6 hours as needed for pain and fever control. Please return to the emergency department if your symptoms change or worsen. Specifically you develop worsening rib/chest pain, shortness of breath, cough, fever or chills or iif you lose consciousness. Please use the incentive spirometer has been provided regularly to decrease risk of development of pneumonia. Please follow with your primary care physician for further outpatient evaluation and management. Disposition Disposition: Home, Self Care Discharge Date/Time: 03/17/23 23:22
[2023-03-17] MEDS: Ibuprofen 200 MG Tablet 400 MG PO (22:03)
[2023-03-17] MEDS: Acetaminophen 325 MG Tablet PO (22:03)
--- NOTE | 2023-03-17 22:10 | RAD_ITS ---
INDICATION: Rib pain EXAMINATION/TECHNIQUE: X-RAY - XR Right Ribs Unilateral W/ PA Chest 4Views COMPARISON: None. FINDINGS: SOFT TISSUES: No soft tissue swelling or gas. BONES: No displaced fracture. No sclerotic or destructive changes observed. VISUALIZED LUNGS: Clear. No pneumothorax. RAD/Ribs Uni Min 3V w/PA Chest IMPRESSION: No evidence of displaced rib fracture. Electronically Signed: Sunny Quinones DO at 22:39 EDT ,
[2023-03-17 23:21] VITALS: BP 132/64; PULSE 80; RESP 18; O2SAT 97
== END 2023-03-17 23:22 | disposition home or self-care (01) ==
PROVIDERS: Emergency Provider Emergency Medicine; PCP Family Medicine; Visit Provider Emergency Medicine
DX: S20.219A Contusion of unspecified front wall of thorax, initial encounter (principal); W19.XXXA Unspecified fall, initial encounter
CPT/HCPCS: 71101; 99284

== ENCOUNTER 2023-04-11 08:27 | Outpatient (RCR) | payer MEDICAID, SELFPAY ==
--- NOTE | 2023-04-11 09:18 | HP.OTEVAL ---
Patient's Visit Information Visit Information Visit Information: ARIELLE HUDDLESTON is a 32 year old F, referred to Occupational Therapy by Dr. Bala Singh MD, with a diagnosis of fracture of unspecified carpal bone, left wrist, closed fracture. Date of Evaluation: 04/11/23 Occupational Therapist: Diamond Travis Subjective Subjective: Patient arrived ~7 weeks s/p L wrist non displaced DRF. She is wearing an exos immobilization brace. She is taking it off sometimes during the day for breaks from it but wears it when using that wrist heavily. 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 ADLs Comments: indep with self-care has help at home if needed Pain L wrist: Current Pain Intensity: 0 Pain Intensity Range: 6 ROM Shoulder: L shoulder WNL Forearm: supination/pronation [address] Wrist: flexion 45; extension 50. Wrist deviation [address] ROM Comments: hand ROM WNL Strength Pattern And Chain Maker: R 74 Lateral Pinch: R 8 Tripod Pinch: R 9 Tip-to-Tip Pinch: R 6 Edema Wrist: 7 inch circumference at wrist L wrist; R wrist 6.75 inch Quick DASH-Disab of Arm,Shoulder& Hand Quick DASH Score: 25.0000 Goals Goal:: Patient will demonstrate L return to factory clerk strength within 10# of right return to factory clerk strength by d/c. Goal:: Patient will demonstrate WNL right active wrist ROM by d/c. Goal:: Patient will be indep with HEP. Rehabilitation General Assessment: Patient arrives ~7 weeks s/p L non operative closed distal radius fracture. She is wearing an immobilzation brace most of the day and night and removing it for short periods of time. She denies pain at rest but reports with R UE activity pain can get to 6/10. 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 Patient demonstrates some stiffness in the wrist with decreased active wrist flexion/extension. Her forearm ROM is WNL as well as shoulder, elbow, and hand. She would benefit from therapy 2x/week for 6 weeks to progress her ROM and then strength when appropriate. Rehabilitation Potential: Good Anticipated Interventions Anticipated Interventions: A/AAROM/PROM, Strengthening, Massage, Triggerpoint Release, Modalities and Orthoses Visit Plan Frequency: 2x /Week Duration: 6 Weeks General Plan: Patient is about 7 weeks post closed reduction L DRF. She has been provided HEP including AROM 10 reps, 3x/day wtih 5 sec holds at end range for wrist flexion/extension, and forearm supination/pronation. Patient interested in wearing a different wrist brace with less rigidity. Plan to follow up and provide suggestions next session (neoprene wrist brace). Educated patient that she can complete gentle self PROM overpressure at the wrist and we will progress to light strengthening at 9 weeks. Plan to work on edema control, AROM exercises, and hand strengthening until we can progress to wrist strengthening. TEXT: Thank you for the opportunity to evaluate your patient. For Medicare and Medicare HMO plans, please review the plan of care and approve it. It will need to be FAXED BACK to us at [phone] for Medicare purposes. Please let me know if there are questions or concerns regarding this plan of care. Physician Signature: Date:
== END 2023-04-11 19:00 | disposition home or self-care (01) ==
LOC: OT 08:27
PROVIDERS: PCP Family Medicine; Referring Provider Orthopaedic Surgery Sports Medicine; Visit Provider Orthopaedic Surgery Sports Medicine
DX: S62.102D Fracture of unspecified carpal bone, left wrist, subsequent encounter for fracture with routine healing (principal)
CPT/HCPCS: 97165

== ENCOUNTER 2023-05-06 09:38 | Outpatient (CLI) | payer MEDICAID, SELFPAY ==
[2023-05-06 11:19] LABS: Hemoglobin 14.8 g/dL (12.0-15.0); Mean Corp Hgb Conc 33.6 g/dL (32-36); Mean Corpuscular Hgb 29.4 pg (27.0-32.0); Mean Corpuscular Volume 87.3 fL (81-99); Mean Platelet Vol. 10.9 fl (6.2-12.0); Platelet Count 184 K/mm3 (150-450); RBC Distribution Width CV 13.2 % (11.6-14.6); Red Blood Count 5.04 M/mm3 (4.2-5.4); White Blood Count 5.8 K/mm3 (4.4-11.0)
[2023-05-06 11:49] LABS: Vitamin B12 323 pg/mL (211-911); Vitamin D,25 Hydroxy 18.7 ng/mL
[2023-05-06 11:52] LABS: Hemoglobin A1c 5.1 % (3.8-5.6)
[2023-05-06 12:31] LABS: AST(SGOT) 10 U/L (15-37); Alanine Aminotransfer ALT/SGPT 19 U/L (13-56); Anion Gap 6 (5-15); BUN 14 mg/dL (7-18); BUN/Creat Ratio 21.4 RATIO (10-20); Calcium,Total 8.7 mg/dL (8.5-10.1); Chloride 104 mmol/L (98-107); Cholesterol 185 mg/dL (200); Creatinine, Serum 0.65 mg/dL (0.55-1.02); EST Glomerular Filtration Rate 111 mL/min (>60); Est Glom Filt Rate - Afr Amer 134 mL/min (>60); Ferritin 30 ng/mL (8-252); Glucose 81 mg/dL (74-106); High Density Lipoprotein 69 mg/dL; Iron Binding Capacity,Total 303 ug/dL (250-450); Potassium 3.8 mmol/L (3.5-5.1); Sodium Level 137 mmol/L (136-145); Thyroid Stim Hormone (TSH) 1.12 uIU/mL (0.358-3.74); Triglycerides 67 mg/dL; Very Low Density Lipoprotein 13 mg/dL (5-40)
== END 2023-05-06 23:59 | disposition home or self-care (01) ==
PROVIDERS: PCP Family Medicine; Referring Provider Physician Assistant; Visit Provider Physician Assistant
DX: Z00.00 Encounter for general adult medical examination without abnormal findings (principal); Z79.899 Other long term (current) drug therapy
CPT/HCPCS: 36415; 80048; 80061; 82306; 82607; 82728; 82746; 83036; 83550; 84443; 84450; 84460; 85027